=== PATIENT | male | born 1980 | race Caucasian/White ===

== ENCOUNTER 2022-01-29 21:12 | Emergency (ER) | payer MEDICAID, SELFPAY ==
[2022-01-29 21:13] VITALS: BP 109/79; PULSE 108; RESP 18; TEMP 36.9; O2SAT 96; BMI 23.8
--- NOTE | 2022-01-29 21:27 | EX.ED.GENINJ ---
HPI History of Present Illness Chief Complaint: Fall Narrative Narrative: 41-year-old male presenting with upper abdominal pain. He states he was rollerskating and felt something pull in the right upper side of his abdomen. He states this is worse when he twists and moves. He denies any nausea or vomiting. Has not had constipation or diarrhea. He does not have a cough or shortness of breath. Patient denies any direct trauma to the abdomen. He states that when he felt this pull he sat down. PFSH PFSH Home Medications cyclobenzaprine 10 mg tablet 10 mg PO TID PRN muscle spasm #20 tabs 01/29/22 [Rx Last Taken Unknown] naproxen 500 mg tablet (Naprosyn) 500 mg PO BID PRN pain #20 tabs 01/29/22 [Rx Last Taken Unknown] Allergy/AdvReac Type Severity Reaction Status Date / Time aspirin Allergy NEEDS Verified 01/29/22 21:30 FOLLOW-UP Social History Smoking Status: Current every day smoker tobacco type: cigarettes ROS ROS ED Constitutional Constitutional ED: Denies chills, fever(s) or sweats Eyes Eyes: Denies blurry vision or change in vision ENT ENT ED: Denies ear pain or sore throat Cardiovascular Cardiovascular: Denies chest pain, palpitations or racing heartbeat Respiratory/Chest Respiratory/Chest: Denies cough, dyspnea or sputum Gastrointestinal Gastrointestinal: Reports abdominal pain; Denies constipation, diarrhea, nausea or vomiting Genitourinary Genitourinary ED: Denies dysuria, hematuria or urinary frequency Musculoskeletal Musculoskeletal: Denies arthralgias, myalgias or neck pain Integumentary Denies abscess, Abrasions or rash Neurologic Neurologic: Denies headache(s), paresthesias or weakness Psychiatric Psychiatric: Denies anxiety, depression, suicidal ideation or suicidal thoughts Endocrine Endocrinology: Denies polydipsia or polyuria EXAM Physical Exam Const Vital Signs: 01/29/22 21:13 01/29/22 21:26 Temperature 98.4 F Temperature Source Temporal Pulse Rate 108 H Respiratory Rate 18 Respiratory Effort Normal Respiratory Depth Normal Respiratory Pattern Normal Blood Pressure 109/79 Blood Pressure Mean 89 Pulse Ox 96 Oxygen Delivery Method Room Air Room Air Positive well nourished General Appearance ED: NAD HEENT atraumatic Eyes Negative for PERRL or EOMs intact bilaterally Chest Wall inspection of chest normal Resp normal respiratory effort and clear to auscultation bilaterally Cardio regular rhythm GI GI Narrative: Mild tenderness to palpation on the right side of the upper abdomen. There is no Capone sign. Abdomen is otherwise soft and benign. No CVA tenderness. Extremity normal to inspection Neuro oriented x3 and CN's II-XII intact bilaterally Sensorium / Orientation: alert and oriented to person Motor Exam: strength 5/5 throughout Psych mental status grossly normal Skin no rashes or lesions noted MDM MDM MDM Narrative Medical decision making narrative: Patient was likely has an abdominal muscle strain. He is treated with Norflex and Toradol. On reevaluation patient is feeling improved. I will discharge him home with Naprosyn and Flexeril. Patient amenable to this plan. Impression: 1. Abdominal muscle strain Lab Data Attestation: I reviewed the patient's lab results. Discharge Plan Triage Chief Complaint: Fall ED Provider: Vasu Sanchez Dx/Rx/DC Orders Instructions: ED Muscle Strain, Abdomen Prescriptions: New cyclobenzaprine 10 mg tablet 10 mg PO TID PRN (Reason: muscle spasm) Qty: 20 0RF naproxen [Naprosyn] 500 mg tablet 500 mg PO BID PRN (Reason: pain) Qty: 20 0RF Primary Care Provider: NOT,DEFINED Referrals: NOT,DEFINED [Primary Care Provider] - Disposition Disposition: Home, Self Care
[2022-01-29] MEDS: Ketorolac 15 MG/ML Vial IM (21:35)
[2022-01-29] MEDS: Orphenadrine 60 MG/2 ML Ampul IM (21:35)
[2022-01-29 22:26] VITALS: PULSE 78; RESP 18; O2SAT 100
== END 2022-01-29 22:27 | disposition home or self-care (01) ==
PROVIDERS: Emergency Provider Student in an Organized Health Care Education/Training Program; Visit Provider Student in an Organized Health Care Education/Training Program
DX: S39.011A Strain of muscle, fascia and tendon of abdomen, initial encounter (principal); X50.9XXA Other and unspecified overexertion or strenuous movements or postures, initial encounter; Y93.51 Activity, roller skating (inline) and skateboarding; Y92.331 Roller skating rink as the place of occurrence of the external cause; F17.210 Nicotine dependence, cigarettes, uncomplicated
CPT/HCPCS: 96372; 99284

== ENCOUNTER 2023-04-14 21:44 | Emergency (ER) | payer MEDICAID, SELFPAY ==
[2023-04-14] VITALS (14 sets, daily range): BP systolic 105–129; BP diastolic 74–85; PULSE 85–106; RESP 8–29; TEMP 36.6; O2SAT 93–96; BMI 23.8
--- NOTE | 2023-04-14 22:10 | EKG12_ITS ---
Test Reason : DYSRHYTHMIA Blood Pressure : / mmHG Vent. Rate : 088 BPM Atrial Rate : 088 BPM P-R Int : 194 ms QRS Dur : 076 ms QT Int : 368 ms P-R-T Axes : 047 035 038 degrees QTc Int : 445 ms Sinus rhythm with frequent Premature ventricular complexes Otherwise normal ECG Confirmed by Todd Hopson ([id number]), publications editor MANUEL CASTELLANOS ([id number]) on 04/17/2023 9:57:30 AM Referred By: Confirmed By:Todd Hopson
--- NOTE | 2023-04-14 22:10 | CT_ITS ---
STUDY: CT BRAIN WITHOUT CONTRAST REASON FOR EXAM: Male, 42 years old. seizure, fall RADIATION DOSAGE (If Supplied By Facility): CTDIvol = ( 44.99 ) mGy, DLP = ( 762.36 ) mGycm TECHNIQUE: Transaxial CT imaging of the brain was performed without administration of intravenous contrast material. Individualized dose optimization techniques were used for this CT. COMPARISON: No relevant priors. FINDINGS: Normal soft tissue structures. Normal calvarium. Normal size ventricles and extra-axial spaces for the patient''s age. Normal white matter tracts of the cerebral hemispheres. Normal basal ganglia and thalami. Normal brainstem. Normal cerebellum. There is no intracranial hemorrhage. There are no findings of an acute ischemic infarction. Mucosal thickening of the visualized paranasal sinuses. CT/Brain/Head without Contrast IMPRESSION: No acute intracranial pathology of the brain. Paranasal sinus disease. Electronically Signed: Isaac Pearce DO at 23:01 EST ,
--- NOTE | 2023-04-14 22:11 | EDS_ITS ---
HPI History of Present Illness Chief Complaint: Seizure Informant: patient and family Onset/Context/Timing Onset: Today Narrative Narrative: Patient presents via EMS after a seizure while rollerskating. Patient does report a history of seizures but has not had one in years. He states he cannot afford the seizure medication has not been on medication in years either. EMS notes on arrival patient is unresponsive with blood sugar of 43. He was given D10 and blood sugar increased to 235. He was then alert and appropriate. Patient states he did not eat much today and then worsening for about 2 hours when this incident occurred. He does not know of any problems with his blood sugar. He does report some spasms in his legs which he states he will get frequently when he will roller states. [facility] Medical History Asthma Seizure Home Medications levetiracetam 500 mg tablet (Keppra) 500 mg PO BID #60 tabs 04/15/23 [Rx Last Taken Unknown] Allergy/AdvReac Type Severity Reaction Status Date / Time aspirin Allergy Rash Verified 04/14/23 21:45 Social History Smoking Status: Current every day smoker tobacco type: cigarettes ROS ROS ED Constitutional Constitutional ED: Denies chills or fever(s) Eyes Eyes: Denies change in vision or discharge from eye(s) ENT ENT ED: Denies discharge from eye(s), rhinorrhea or sore throat Cardiovascular Cardiovascular: Denies chest pain or palpitations Respiratory/Chest Respiratory/Chest: Denies cough or dyspnea Gastrointestinal Gastrointestinal: Denies abdominal pain, nausea or vomiting Genitourinary Genitourinary ED: Denies dysuria Musculoskeletal Musculoskeletal: Reports extremity pain; Denies back pain Integumentary Denies Abrasions or rash Neurologic Neurologic: Denies headache(s) or weakness Psychiatric Psychiatric: Denies anxiety or depression Allergic/Immunologic Allergic/Immunologic ED: Denies lip swelling or urticaria EXAM Physical Exam Const Vital Signs: 04/14/23 21:45 Temperature 97.9 F Temperature Source Temporal Pulse Rate 106 H Respiratory Rate 18 Blood Pressure 129/84 H Blood Pressure Mean 99 Pulse Ox 94 Positive well nourished and well developed General Appearance ED: well developed HEENT Reports moist mucous membranes HEENT Narrative: No intraoral injury. Eyes EOMs intact bilaterally Chest Wall inspection of chest normal and palpation of chest normal Resp normal respiratory effort and clear to auscultation bilaterally Cardio regular rate and regular rhythm GI non-tender Palpation: soft Extremity normal to inspection Neuro oriented x3 Neuro Narrative: No focal neurologic deficit. Sensorium / Orientation: alert Skin no rashes or lesions noted MDM MDM MDM Narrative Medical decision making narrative: Patient placed on quality assurance monitor chassis. IV line established. Repeat blood sugar ordered at this time. EKG obtained to evaluate for cardiac arrhythmia/ischemia. CT scan of the head obtained given seizure and fall. Labwork obtained to evaluate for leukocytosis, anemia, and electrolyte derangement. Patient given 1 g of IV Keppra. History & Record Review Discussion w/independent historian: Patient and Family Additional record(s) reviewed:: Prior outpatient record and Prior labs Lab Data Attestation: I reviewed the patient's lab results. Labs: Laboratory Results - last 24 hr 04/14/23 04/14/23 04/14/23 22:15 22:50 23:27 WBC 13.2 H RBC 5.03 Hgb 16.0 Hct 44.7 MCV 88.9 MCH 31.8 MCHC 35.8 RDW Std Deviation 38.5 RDW Coeff of Zehra 11.9 Plt Count 288 MPV 10.1 Immature Gran % (Auto) 0.300 Neut % (Auto) 80.7 H Lymph % (Auto) 12.3 L Prentiss % (Auto) 5.8 Eos % (Auto) 0.6 Baso % (Auto) 0.3 Absolute Neuts (auto) 10.7 H Absolute Lymphs (auto) 1.62 Nucleated RBC % 0 Sodium 141 Potassium 3.4 L Chloride 109 H Carbon Dioxide 25.0 Anion Gap 7 BUN 14 Creatinine 1.60 H Estim Creat Clear Calc 52.32 Est GFR (MDRD) Af Amer 61 Est GFR (MDRD) Non-Af 51 L BUN/Creatinine Ratio 8.8 L Glucose 109 H Calcium 9.9 POC Glucose 63 L 114 H Radiography Diagnostic Testing: Clinical Impression(s) from Imaging Studies Brain CT 04/14/23 22:10 IMPRESSION: No acute intracranial pathology of the brain. Paranasal sinus disease. Electronically Signed: Isaac Pearce DO at 23:01 EST Reading Location ID and State: [facility] / [place] Tel [phone], Service support , EKG Initial EKG: Attestation: I personally reviewed and interpreted this EKG as follows: Interpretation: Sinus Rhythm (Sinus 88 with frequent PVCs. No acute ischemia.) Treatment and Re-Evaluation :: CBC was a white count of 13.2 with a percent neutrophils. Hemoglobin normal at 16. Chemistry studies reveal slightly low potassium at 3.4. His BUN is normal at 14 but creatinine is 1.6. I reviewed records and [facility]. I do not see that he has had his renal function checked since 2016 and it was normal at that time. BGT on his blood work was 109. Patient was sent over to CT and upon return to the ER his sugar was rechecked and down to 63. He was given half amp of D50 and a sandwich with some cookies to eat. He did not eat much of it. Repeat sugar at this time is 114. Will recheck his sugar and 1/2-hour to ensure it is stable. He would prefer discharge to home if at all possible. He is not a diabetic and not on any medications that should be affecting his blood sugar. He does admit that he does not eat much. We did discuss his renal function and need to increase fluids and have this rechecked. I will write him a presc ription for Keppra and give him a good Rx card to try to help afford the medication. He will be referred to Dr. Burt locally for follow-up. Discharge Plan Triage Chief Complaint: Seizure ED Provider: Celia Buckley Dx/Rx/DC Orders Clinical Impression: Hypoglycemia, Seizure Instructions: ED Hypoglycemia, Nondiabetic, ED Seizure, Recurrent (Adult) Prescriptions: New levetiracetam [Keppra] 500 mg tablet 500 mg PO BID Qty: 60 0RF Primary Care Provider: Care Physician,No Primary Referrals: Brandan Mccrary MD [Non-Staff -Ordering Privileges] - As soon as possible NOT,DEFINED [Non-Staff] - Disposition Disposition: Home, Self Care
[2023-04-14] MEDS: 0.9% Normal Saline (500mL Bag) 500 ML 1000 ML IV (22:24)
[2023-04-14] MEDS: levETIRAcetam IV 1,000 MG/100 ML BAG 400 MG IV (22:24)
[2023-04-14 22:26] LABS: Absolute Lymphocyte Count 1.62 X10^3/uL (0.83-4.51); Absolute Neutrophil Count 10.7 X10^3/uL (2.0-7.7); Basophil# 0.04 X10^3/uL; Basophil% 0.3 % (0-1); Eosinophil# 0.08 X10^3/uL; Eosinophils% 0.6 % (0-5); Hematocrit 44.7 % (40-54); Lymphocyte # 1.62 X10^3/ul (0.83-4.51); Lymphocyte % 12.3 % (19-41); Mean Corp Hgb Conc 35.8 g/dL (32-36); Mean Corpuscular Hgb 31.8 pg (27.0-32.0); Mean Corpuscular Volume 88.9 fL (80-94); Mean Platelet Vol. 10.1 fl (6.2-12.0); Monocyte# 0.77 X10^3/uL; Monocyte% 5.8 % (0-10); NRBC Flagged by Analyzer 0 % (0-5); Neutrophil # 10.66 X10^3/uL (2.7-7.7); Neutrophil % 80.7 % (47-70); Platelet Count 288 K/mm3 (150-450); RBC Distribution Width CV 11.9 % (11.6-14.6); RBC Distribution Width SD 38.5 fl (35.1-43.9); Red Blood Count 5.03 M/mm3 (4.6-6.2); White Blood Count 13.2 K/mm3 (4.4-11.0)
--- OUTSIDE RECORDS SUMMARY | 2023-04-14 22:40 | XMS RPT_ITS | CCD ---
Author Name Unknown Address [address] [place] [address] Organization [facility] Care Team Providers Care Supervisor Tan Room Name Role Phone MICH RAMOS Unavailable Unavailab ABDULAZIZ Glover Unavailable Unavailable Unavailable Unavailable Unavailable Egal, Koko W Unavailable Unavailable Egal, Koko W Unavailable Unavailable Giorgi Villalpando Unavailable Unavailable RevillGiorgi Unavailable Unavailable Ramirez, Luis Eduardo R Unavailable Unavailable Ramirez, Luis Eduardo R Unavailable Unavailable Vandana, Zahraa S Unavailable Unavailable [place], Zahraa S Unavailable Unavailable Simon Hunter Unavailable Unavailable Simon Hunter Unavailable Unavailable [facility], Other Primary Care Provider Precious Sy Primary Care Provider Precious Sy Primary Care Provider [facility], Other Primary Care Provider YELENA BIGGS Attending Unavailable PRECIOUS SY Primary Care Unavailable PRECIOUS SY Primary Care Unavailable YELENA BIGGS Attending Unavailable PRECIOUS SY Primary Care Unavailable YELENA BIGGS Attending Unavailable Required, No Pcp Unavailable Unavailable [place], Johanny Unavailable Unavailable Peter, Myra Unavailable Unavailable [facility], Other Primary Care Provider Unavailable Primary Care Provider UnavailWADE Betancourt Attending Unavailable [facility], OTHER Primary Care Unavailable VANDANA, ZAHRAA Attending Unavailable [facility], OTHER Primary Care Unavailable RAÚL VEGA Attending Unavailable NO, PHYSICIAN Primary Care Unavailable LENKA MCMAHON Attending Unavailable NO, PHYSICIAN Primary Care Unavailable DRU PEREZ Attending Unavailable NO, PHYSICIAN Primary Care Unavailable NO, PHYSICIAN Primary Care Unavailable TERESITA PEDERSEN Attending Unavailabl e Allergies Allergy Classification Reported Allergen(s) Allergy Type Date of Onset Reaction(s) Facility Aluminum aspirin (1 source) Aluminum aspirin Drug Allergy 6 [facility] (16 sources) aspirin; Translations: [ASPIRIN] Drug Allergy 6 [facility] (1 source) Sweat Bees Rash, Swelling/Edema [facility] Medications Current Medications Medication Drug Class(es) Dates Sig (Normalized) Sig (Original) acetaminophen 325 mg / HYDROcodone bitartrate 5 mg oral tablet (3 sources) Opioid Agonist Start: 05-13-2022 End: 05-16-2022 take 1 tablet by mouth every four hours as needed hydroCODone-aceta minophen 5-325 MG tablet Indications: Kidney stone Take 1 tablet by mouth every 4 hours as needed for up to 3 days. 10 tablet 0 05/13/2022 Active Completed/Discontinued Medications Medication Drug Class(es) Dates Sig (Normalized) Sig (Original) acetaminophen 500 mg oral tablet (1 source) Start: 05-13-2022 End: 05-13-2022 acetaminophen (TYLENOL) tablet 1,000 mg 1000 ml sodium chloride 9 mg/ml injection (2 sources) Start: 07-24-2018 End: 07-25-2018 sodium chloride 0.9% (NS) Problems Active Problems Problem Classification Problem Date Documented Da te Episodic/Chronic Abdominal pain (1 source) Abdominal pain; Translations: [Abdominal pain in male] Episodic Biliary tract disease (1 source) Biliary colic; Translations: [Biliary colic] Episodic Mood disorders (5 sources) Mood disorder; Translations: [Mood disorder] Onset: 05-25-2018 05-25-2018 Chronic Open wounds of head; neck; and trunk (3 sources) Facial laceration ; Translations: [Laceration without foreign body of other part of head, initial encounter] Onset: 11-12-2022 11-12-2022 Episodic Other connective tissue disease (1 source) Pain of left hand; Translations: [Pain in left hand] Episodic Other connective tissue disease (2 sources) Enthesopathy, unspecified; Translations: [Enthesopathy, unspecified] Onset: 11-16-2022 Episodic Other connective tissue disease (2 sources) Pain in right arm; Translations: [Pain in right arm] Onset: 11-16-2022 Episodic Other connective tissue disease (1 source) Pain of left hand; Translations: [Pain of left hand] Other non-traumatic joint disorders (2 sources) Shoulder pain; Translations: [Left shoulder pain, unspecified chronicity] Episodic Other non-traumatic joint disorders (1 source) Hip pain; Translations: [Pain in unspecified hip] Episodic Residual codes; unclassified (5 sources) Restlessness and agitation; Translations: [Agitation] Onset: 06-08-2018 06-08-2018 Chronic Residual codes; unclassified (1 source) Body mass index (BMI) 22.0-22.9, adult; Translations: [BMI 22.0-22.9, adult] Onset: 05-25-2018 05-25-2018 Episodic Spondylosis; intervertebral disc disorders; other back problems (4 sources) Sacral radiculopathy; Translations: [Thoracic or lumbosacral neuritis or radiculitis, unspecified] Resolved: 08-05-2021 08-05-2021 Episodic Past or Other Problems Problem Classification Problem Date Documented Da te Episodic/Chronic Administrative/social admission (5 sources) Educational problem; Translations: [Other problems related to education and literacy] Onset: 05-25-2018 05-25-2018 Episodic Calculus of urinary tract (3 sources) Kidney stone; Translations: [Calculus of kidney] Onset: 05-13-2022 Episodic Crushing injury or internal injury (2 sources) Crushing injury of right hand, initial encounter; Translations: [Crushing injury of right hand, initial encounter] Onset: 06-14-2022 Episodic Disorders of teeth and jaw (3 sources) Toothache; Translations: [Periapical abscess without sinus] Onset: 03-14-2022 Episodic Other connective tissue disease (4 sources) Tendinitis of foot; Translations: [Tendinitis of toe] Onset: 08-28-2019 08-28-2019 Episodic Other connective tissue disease (2 sources) Pain in right hand; Translations: [Pain in right hand] Onset: 06-16-2022 Episodic Residual codes; unclassified (5 sources) FH: Diabetes mellitus; Translations: [Family history of diabetes mellitus (DM)] Onset: 06-08-2018 06-08-2018 Episodic Residual codes; unclassified (5 sources) FH: Thyroid disorder; Translations: [Family history of thyroid disorder] Onset: 06-08-2018 06-08-2018 Episodic Unclassified (1 source) Onset: 11-12-2022 11-12-2022 Results Test Name Value Interpretation Reference Range Facil ity Vital Signs Date Time Vital Sign Value Performing Clinician Facility 11-12-2022 14:52-0400 Diastolic blood pressure 86 mm[Hg] [facility] 11-12-2022 14:52-0400 Heart rate 80 /min [facility] 11-12-2022 14:52-0400 Respiratory rate 18 /min [facility] 11-12-2022 14:52-0400 SaO2% (BldA) [Mass fraction] 98 % [facility] 11-12-2022 14:52-0400 Systolic blood pressure 131 mm[Hg] [facility] 11-12-2022 13:24-0400 Body height 165.1 cm [facility] 11-12-2022 13:24-0400 Body mass index (BMI) [Ratio] 26.63 kg/m2 [facility] 11-12-2022 13:24-0400 Body weight 72.58 kg [facility] 11-12-2022 13:23-0400 Body temperature 98.1 [degF] [facility] 05-13-2022 09:29-0400 Body temperature 97.59 [degF] Wade Samuels MD Work Phone: [facility] 05-13-2022 09:29-0400 Diastolic blood pressure 64 mm[Hg] Wade Samuels MD Work Phone: [facility] 05-13-2022 09:29-0400 Heart rate 79 /min Wade Samuels MD Work Phone: [facility] 05-13-2022 09:29-0400 Respiratory rate 16 /min Wade Samuels MD Work Phone: [facility] 05-13-2022 09:29-0400 SaO2% (BldA) [Mass fraction] 97 % Wade Samuels MD Work Phone: [facility] 05-13-2022 09:29-0400 Systolic blood pressure 110 mm[Hg] Wade Samuels MD Work Phone: [facility] 05-13-2022 08:35-0400 Body height 160 cm Wade Samuels MD Work Phone: [facility] 08-27-2021 12:32-0400 Body height 160 cm No Pcp Required [facility] 08-27-2021 12:32-0400 Body temperature 96.98 [degF] No Pcp Required [facility] 08-27-2021 12:32-0400 Diastolic blood pressure 76 mm[Hg] No Pcp Required [facility] 08-27-2021 12:32-0400 Heart rate 75 /min No Pcp Required [facility] 08-27-2021 12:32-0400 SaO2% (BldA) [Mass fraction] 95 % No Pcp Required [facility] 08-27-2021 12:32-0400 Systolic blood pressure 104 mm[Hg] No Pcp Required [facility] 08-05-2021 16:47-0400 Body height 160 cm No Pcp Required [facility] 08-05-2021 16:47-0400 Body temperature 98.06 [degF] No Pcp Required [facility] 08-05-2021 16:47-0400 Diastolic blood pressure 94 mm[Hg] No Pcp Required [facility] 08-05-2021 16:47-0400 Heart rate 59 /min No Pcp Required [facility] 08-05-2021 16:47-0400 Respiratory rate 16 /min No Pcp Required [facility] 08-05-2021 16:47-0400 SaO2% (BldA) [Mass fraction] 98 % No Pcp Required [facility] 08-05-2021 16:47-0400 Systolic blood pressure 131 mm[Hg] No Pcp Required [facility] 02-23-2021 08:49-0500 Body height 160 cm Luis Eduardo Foskey DO Work Phone: [facility] 02-23-2021 08:49-0500 Body mass index (BMI) [Ratio] 28.34 kg/m2 Luis Eduardo Foskey DO Work Phone: [facility] 02-23-2021 08:49-0500 Body weight 72.58 kg Luis Eduardo Foskey DO Work Phone: [facility] 02-23-2021 08:48-0500 Body temperature 97.81 [degF] Luis Eduardo Foskey DO Work Phone: [facility] 02-23-2021 08:48-0500 Diastolic blood pressure 87 mm[Hg] Luis Eduardo Foskey DO Work Phone: [facility] 02-23-2021 08:48-0500 Heart rate 79 /min Luis Eduardo Foskey DO Work Phone: [facility] 02-23-2021 08:48-0500 Respiratory rate 16 /min Luis Eduardo Foskey DO Work Phone: [facility] 02-23-2021 08:48-0500 SaO2% (BldA) [Mass fraction] 97 % Luis Eduardo Foskey DO Work Phone: [facility] 02-23-2021 08:48-0500 Systolic blood pressure 113 mm[Hg] Luis Eduardo Foskey DO Work Phone: [facility] 07-23-2020 14:32-0400 Body temperature 97.9 [degF] Other [facility] Work Phone: [facility] 07-23-2020 14:32-0400 Diastolic blood pressure 91 mm[Hg] Other [facility] Work Phone: [facility] 07-23-2020 14:32-0400 Heart rate 64 /min Other [facility] Work Phone: [facility] 07-23-2020 14:32-0400 Respiratory rate 16 /min Other [facility] Work Phone: [facility] 07-23-2020 14:32-0400 SaO2% (BldA) [Mass fraction] 99 % Other [facility] Work Phone: [facility] 07-23-2020 14:32-0400 Systolic blood pressure 133 mm[Hg] Other [facility] Work Phone: [facility] 06-11-2020 12:41-0400 BP Diastolic 66 mm[Hg] [facility] 06-11-2020 12:41-0400 BP Systolic 135 mm[Hg] [facility] 06-11-2020 12:40-0400 BMI (Body Mass Index) 21.26 kg/m2 [facility] 06-11-2020 12:40-0400 Body Temperature 97.81 [degF] [facility] 06-11-2020 12:40-0400 Body weight 54.43 kg [facility] 06-11-2020 12:40-0400 Height 160 cm [facility] 06-11-2020 12:40-0400 Pulse (Heart Rate) 83 /min [facility] 06-11-2020 12:40-0400 Pulse Oximetry 98 % [facility] 06-11-2020 12:40-0400 Respiratory Rate 18 /min [facility] 12-03-2019 09:12-0400 BMI (Body Mass Index) 20.6 kg/m2 [facility] 12-03-2019 09:12-0400 Body Temperature 97.81 [degF] [facility] 12-03-2019 09:12-0400 Body weight 54.43 kg [facility] 12-03-2019 09:12-0400 BP Diastolic 76 mm[Hg] [facility] 12-03-2019 09:12-0400 BP Systolic 127 mm[Hg] [facility] 12-03-2019 09:12-0400 Height 162.6 cm [facility] 12-03-2019 09:12-0400 Pulse (Heart Rate) 64 /min [facility] 09:12-0400 [facility] 98 % [facility] 09:12-0400 Respiratory Rate 18 /min [facility] 08-28-2019 08:25-0400 BMI (Body Mass Index) 28.34 kg/m2 [facility] 08-28-2019 08:25-0400 Body weight 72.58 kg [facility] 08-28-2019 08:25-0400 BP Diastolic 84 mm[Hg] [facility] 08-28-2019 08:25-0400 BP Systolic 114 mm[Hg] [facility] 08-28-2019 08:25-0400 Height 160 cm [facility] 08-28-2019 08:25-0400 Pulse (Heart Rate) 76 /min [facility] 08-28-2019 08:25-0400 Respiratory Rate 18 /min [facility] 08-28-2019 08:24-0400 Body Temperature 98.1 [degF] [facility] 06-07-2019 13:08-0400 BMI (Body Mass Index) 24.96 kg/m2 [facility] 06-07-2019 13:08-0400 Body weight 68.04 kg [facility] 06-07-2019 13:08-0400 Height 165.1 cm [facility] 06-07-2019 13:06-0400 Body Temperature 99 [degF] [facility] 06-07-2019 13:06-0400 BP Diastolic 86 mm[Hg] [facility] 06-07-2019 13:06-0400 BP Systolic 136 mm[Hg] [facility] 06-07-2019 13:06-0400 Pulse (Heart Rate) 99 /min [facility] 06-07-2019 13:06-0400 Pulse Oximetry 97 % [facility] 06-07-2019 13:06-0400 Respiratory Rate 20 /min [facility] 07-25-2018 00:48-0400 BP Diastolic 79 mm[Hg] India Marker [facility] 07-25-2018 00:48-0400 BP Systolic 118 mm[Hg] India Marker [facility] 07-25-2018 00:48-0400 Pulse (Heart Rate) 64 /min India Murphy [facility] 07-25-2018 00:48-0400 Pulse Oximetry 98 % India Murphy [facility] 07-24-2018 20:31-0400 Body Temperature 98.1 [degF] India Murphy [facility] 07-24-2018 20:16-0400 BMI (Body Mass Index) 28.34 kg/m2 India Murphy [facility] 07-24-2018 20:16-0400 Height 160 cm India Murphy [facility] 07-24-2018 20:16-0400 Weight 72.58 kg India Murphy [facility] 06-15-2018 10:00-0400 BMI (Body Mass Index) 23.41 kg/m2 [facility] 06-15-2018 10:00-0400 Body Temperature 97.81 [degF] Jaiden [facility] 06-15-2018 10:00-0400 Height 162.6 cm Jaiden [facility] 06-15-2018 10:00-0400 Weight 61.87 kg [facility] 06-05-2018 11:59-0400 Body Temperature 98.71 [degF] Other [facility] 06-05-2018 11:59-0400 BP Diastolic 69 mm[Hg] [facility] 06-05-2018 11:59-0400 BP Systolic 116 mm[Hg] Other [facility] 06-05-2018 11:59-0400 Pulse (Heart Rate) 63 /min Other [facility] 06-05-2018 11:59-0400 Pulse Oximetry 97 % Other [facility] 06-05-2018 11:59-0400 Respiratory Rate 18 /min Other [facility] 02-16-2018 11:49-0500 Height 160 cm [facility] Work Phone: 02-16-2018 11:48-0500 Body Temperature 98.29 [degF] [facility] Work Phone: 02-16-2018 11:48-0500 BP Diastolic 70 mm[Hg] [facility] Work Phone: 02-16-2018 11:48-0500 BP Systolic 131 mm[Hg] [facility] Work Phone: 02-16-2018 11:48-0500 Pulse (Heart Rate) 86 /min [facility] Work Phone: 02-16-2018 11:48-0500 Pulse Oximetry 97 % [facility] Work Phone: 02-16-2018 11:48-0500 Respiratory Rate 16 /min [facility] Work Phone: Encounters Encounter Date Encounter Type Care Provider Facility Start: 01-17-2023 End: 01-17-2023 Emergency department patient visit [facility] Start: 11-16-2022 End: 11-16-2022 Emergency department patient visit [facility] Start: 11-12-2022 End: 11-12-2022 Emergency department patient visit WADE [facility] Start: 11-12-2022 End: 11-12-2022 Emergency department patient visit [facility] Start: 06-16-2022 End: 06-16-2022 Emergency department patient visit [facility] Start: 06-14-2022 End: 06-15-2022 Emergency department patient visit [facility] Start: 05-13-2022 End: 05-13-2022 Emergency department patient visit WADE [facility] Start: 05-13-2022 End: 05-13-2022 Emergency department patient visit Wade Samuels MD Work Phone: [facility] Start: 03-14-2022 End: 03-14-2022 Emergency department patient visit [facility] Start: 08-27-2021 End: 08-27-2021 Emergency department patient visit Myra Green [place] [id number] Start: 08-05-2021 End: 08-05-2021 Emergency department patient visit Johanny Early [facility] Start: 02-23-2021 End: 02-23-2021 Emergency department patient visit Luis Eduardo Dobbins Work Phone: [facility] Start: 12-28-2020 End: 12-28-2020 Emergency department patient visit ISABELLEFLAKITO LINDYEDUARDO [facility] Start: 11-30-2020 End: 11-30-2020 Emergency department patient visit [facility] Start: 2020 End: 2020 [facility] Start: 07-23-2020 End: 07-23-2020 Emergency department patient visit [facility] Work Phone: [facility] Start: 06-11-2020 End: 06-11-2020 Emergency department patient visit Giorgi Zuniga Irasema Work Phone: [facility] Emergency Department Start: 12-03-2019 End: 12-03-2019 Emergency department patient visit Annie Nair Dave Work Phone: [facility] Emergency Department Procedures Date Procedure Procedure Detail Performing Clinician Start: 11-12-2022 Ct head/brain w/o co ntrast material Precious Hi [employer] Work Phone: Start: 11-12-2022 PROCEDURE - LACERATI ON REPAIR Precious Hi [employer] Work Phone: Start: 05-13-2022 Radiologic exam abdo men 1 view Wade Samuels MD Work Phone: Start: 05-13-2022 Urinalysis, reagent strip without microscopy Wade Samuels MD Work Phone: Start: 07-23-2020 Radex hand minimum 3 views Anita Mendez [employer] Work Phone: Start: 06-11-2020 Radex hand minimum 3 views Dunia Jean Work Phone: Start: 12-03-2019 End: 12-03-2019 Glucose [Mass/volume] in Blood Vashti Gallegos Work Phone: Start: 07-25-2018 Ct abdomen & pelvis w/contrast material India Jones Marker Work Phone: Start: 07-25-2018 Basic metabolic 2000 panel - Serum or Plasma India Jones Marker Work Phone: Start: 07-25-2018 Complete blood count with white cell differential, automated India Jones Marker Work Phone: Start: 07-25-2018 Complete blood count with white cell differential, manual Indiasrini Jones Marker Work Phone: Start: 07-25-2018 Hepatic function 200 0 panel - Serum or Plasma India Jones Marker Work Phone: Start: 07-25-2018 LAVENDER TOP Indiasrini wilson Marker Work Phone: Start: 07-25-2018 LIGHT BLUE TOP Indiasrini Change Marker Work Phone: Start: 07-25-2018 LIGHT GREEN TOP Indiasrini Jones Marker Work Phone: Start: 07-25-2018 Lipase [Enzymatic activity/volume] in Serum or Plasma India Jones Marker Work Phone: Start: 06-05-2018 Radiography of shoulder Alex Odom Work Phone: Plan of Treatment Date Care Activity Detail Author Start: 11-12-2032 Tetanus vaccination TETANUS [facility] Start: 2030 Tetanus vaccination TETANUS [facility] Start: 10-28-2022 Influenza vaccination INFLUENZA VACCINE (#1) [facility] Start: 10-28-2021 Influenza vaccination INFLUENZA VACCINE (#1) [facility] Start: 10-28-2020 Influenza vaccination [facility] [employer] Start: 2020 Fasting lipid profile LIPID SCREENING [facility] [employer] Start: 2020 Lipid panel LIPID SCREENING [facility] [employer] [facility] Start: 08-11-2020 End: 08-11-2020 Patient encounter procedure 08/11/2020 Office Visit Orthopaedics Jaiden Cummins DO [address] [place] [address] [phone] [facility] Start: 10-29-2019 Influenza vaccination given [facility] Start: 05-26-2019 History and physical examination, annual for health maintenance Wellness Visit [facility] Start: 10-28-2018 Influenza vaccination INFLUENZA VACCINE (Season Ended) [facility] Start: 10-28-2018 Influenza vaccination given [facility] Start: 08-08-2018 End: 08-08-2018 Office Visit 08/08/2018 Office Visit Primary Care Precious Sy, [employer] [address] [place] [address] [phone] [place] [id number] Start: 06-15-2018 End: 06-15-2018 Office Visit 06/15/2018 Office Visit Orthopaedics Jaiden Cummins, DO [address] [place] [address] [phone] [facility] Start: 10-28-2017 Influenza vaccination INFLUENZA VACCINE (#1) [facility] Work Phone: Start: 10-03-1999 Third diphtheria, tetanus and acellular pertussis (DTaP) vaccination TDAP (ADULT) [facility] Start: 1998 Tetanus vaccination TETANUS [facility] Start: 1996 COVID-19 Vaccine (1) COVID-19 Vaccine (1) [facility] Start: 10-03-1995 HIV screening HIV SCREENING DISCUSSION [facility] Start: 1993 HIV screening HIV SCREENING DISCUSSION [facility] Work Phone: Start: 1992 Adolescent depression screening assessment Depression Screening (PHQ9) [facility] Start: 1992 COVID-19 VACCINE (1) COVID-19 VACCINE (1) [facility] Start: 1986 PNEUMOCOCCAL VACCINE SERIES (1 - PCV) PNEUMOCOCCAL VACCINE SERIES (1 - PCV) [facility] Start: 1986 PNEUMOCOCCAL VACCINE SERIES (1 of 2 - PPSV23) PNEUMOCOCCAL VACCINE SERIES (1 of 2 - PPSV23) [facility] Start: 1985 COVID-19 VACCINE (1) COVID-19 VACCINE (1) [facility] Start: 04-04-1981 COVID-19 VACCINE (#1) COVID-19 VACCINE (#1) [facility] Start: 1980 Depression screening using PHQ-9 (Patient Health Questionnaire 9) score Depression Screening (PHQ9) [facility] Start: 1980 Hepatitis C antibody, confirmatory test HEPATITIS C VIRUS SCREENING [facility] Start: 1980 Hepatitis C screening HEPATITIS C VIRUS SCREENING [facility] Start: 1980 Tetanus vaccination [facility] CT Abdomen Pelvis Wi IV Contrast Only CT Abdomen Pelvis With IV Contrast Only Imaging STAT 07/24/2018 11:37 PM EDT [facility] [place] [employer] [place] Top L ab STAT 07/24/2018 9:44 PM EDT [facility] PROCEDURE - LACERATI ON REPAIR Laceration Repair at the Bedside Procedures Routine Facial laceration, initial encounter 11/12/2022 1:55 PM EDT [facility] End: 02-16-2018 Radiography of shoulder XR SHOULDER RIGHT MIN 2 VIEWS STAT One Time for 1 Occurrences starting 02/16/2018 until 02/16/2018 [facility] Work Phone: Immunizations Immunization Date Immunization Notes Care Provider Luis Alfredo landaverde 11-12-2022 tetanus toxoid, redu gerri diphtheria toxoid, and acellular pertussis vaccine, adsorbed [facility] Payers Date Payer Category Payer Medicaid [place] MEDICA[place] [id number] 2022-Present [address] [place] [address] [id number] 2020 Unknown [employer]OUNT [employer]GE [employer] [id number] 2020-Present [address] [place] [address] [id number] 2018 Medicaid MEDICAID MEDICAI D xxxxxxxxxxxx 2018-Present [id number] 2018 Medicaid MEDICAID MEDICAI D [id number] 2018-Present [id number] 2018 Medicaid [employer]OUNT [employer]NA[employer] D MEDICAID [place] [employer] MEDICAID [id number] 2018-Present [id number] 2018 Medicaid [id number] 2018 Unknown [id number] 2018 Medicaid [id number] 2016 Medicaid [id number] 1980 Unknown [id number] 1980 Unknown [id number] 1980 Unknown [id number] 1980 Unknown [id number] 1980 Unknown [id number] 1980 Unknown [id number] 1980 Unknown [id number] 1980 Unknown [id number] 1980 Unknown [id number] 1980 Unknown [id number] Unknown [employer] MEDICAID Social History Date Type Detail Facility Start: 02-16-2018 End: 05-13-2022 Tobacco smoking status NHIS Current some day smoker [facility] History of tobacco use Cigarette Smoker [facility] Work Phone: Start: 02-16-2018 End: 11-12-2022 Cigarettes smoked current (pack per day) - Reported [facility] Work Phone: Start: 1980 Sex Assigned At Not on file [facility] Work Phone: Start: 09-16-2015 Alcohol Comment rarely [facility] Start: 06-07-2019 End: 06-11-2020 Alcohol intake Ex-drinker (finding) [facility] Exposure to SARS-CoV -2 (event) Unable to assess [facility] Start: 05-03-2022 End: 05-13-2022 Exposure to SARS-CoV-2 (event) Not sure [facility] Start: 12-03-2019 End: 06-11-2020 Tobacco use and exposure Former user [facility] End: 02-27-2017 History of tobacco use User of smokeless tobacco [facility] Start: 07-23-2020 End: 05-13-2022 Tobacco use and exposure Never used [facility] Start: 07-23-2020 End: 11-12-2022 Alcohol intake Current non-drinker of alcohol (finding) [facility] Tobacco smoking consumption unknown [facility] Start: 11-12-2022 Tobacco use panel [facility] Start: 02-16-2018 Gender identity Identifies as male gender (finding) [facility] Goals Date Patient Goal Desired Activity /State Clinical Notes 07-23-2020 to 11-12-2022 Kavita Beaulieu RN - 11/12/2022 2:52 PM Lissette Beaulieu RN - 11/12/2022 2:52 PM Lissette Beaulieu RN - 11/12/2022 2:43 PM EDTTisaac Beaulieu RN - 11/12/2022 2:43 PM EDTInstructionsAttachments Note Date & Type Note Facility 11-12-2022 Emergency departm ent Note Discharge instructions given to patient. Patient verbalized understanding. All personal belongings given to patient. Denied any further needs. Ambulated with steady gait out of Emergency Department. [facility] 11-12-2022 Emergency departm ent Note Discharge instructions given to patient. Patient verbalized understanding. All personal belongings given to patient. Denied any further needs. Ambulated with steady gait out of Emergency Department. Mid-level provider at bedside. Plan of care reviewed per provider. documented in this encounter [facility] 11-12-2022 Emergency depart ent Note Mid-level provider at bedside. Plan of care reviewed per provider. [facility] 05-13-2022 Physician Emergen cy department Note Emergency Department Report [facility] Service Date:.05/13/22 PCP: [facility] Chief Complaint: Chief Complaint Patient presents with Flank Pain Pt c/o right flank pain for a long time . Pt reports history of multiple kidney stones. Reports he did have burning with urination, but has been drinking a lot of cranberry juice and Gatorade and that improved his urinary symptoms. HPI Constantino Pineda is a 41 y.o. male presents to the ED today due to right flank pain is been going on for a long time. Patient states he has a history of recurrent kidney stones. Patient some burning urination. But he has been drinking fluids which is symptoms. No report of fever or chills no report of bowel bladder dysfunction no report numbness tingling or weakness. Review of Systems: Review of Systems All other systems reviewed and are negative. Past Medical History: Past Medical History: Diagnosis Date Asthma Bipolar affect, depressed Seizure Past Surgical History: No past surgical history on file. Allergies: Allergies Allergen Reactions Aspirin Hives Medications: Discharge Medication List as of 05/13/2022 9:54 AM START taking these medications Details hydroCODone-acetaminophen 5-325 MG tablet Take 1 tablet by mouth every 4 hours as needed for up to 3 days. Normal Disp-10 tablet, R-0Prescribe no greater than 7 days (adult) or 5 days (minor) for acute pain unless justification documented in chart Ondansetron 4 MG Tab Dispersible tablet Take 1 tablet by mouth every [address] on tongue Normal Disp-15 tablet, R-0 Tamsulosin HCl 0.4 MG capsule Take 1 capsule by mouth daily. Until stone passed Normal Disp-10 capsule, R-0 CONTINUE these medications which have NOT CHANGED Details Albuterol 108 (90 Base) MCG/ACT Aero Soln inhaler Inhale 2 puffs. Historical Med busPIRone 5 MG Tab Take 1 tablet by mouth 3 times daily as needed. Historical Med cyclobenzaprine 10 MG Tab tablet Take 1 tablet by mouth 3 times daily as needed for Muscle spasms. Print Disp-12 tablet, R-0 ibuprofen 600 MG tablet Take 1 tablet by mouth every 6 hours as needed. Normal Disp-30 tablet, R-0 predniSONE 20 MG Tab tablet Take 1 tablet by mouth 2 times daily. Print Disp-10 tablet, R-0 QUEtiapine 50 MG Tab tablet Take 1 tablet by mouth Daily (with dinner). Historical Med Family History: No family history on file. Social History: Social History Socioeconomic History Marital status: Spouse name: Not on file Number of children: Not on file Years of education: Not on file Highest education level: Not on file Occupational History Not on file Tobacco Use Smoking status: Some Days Packs/day: 0.50 Types: Cigarettes Smokeless tobacco: Never Substance and Sexual Activity Alcohol use: No Drug use: Yes Types: Marijuana Sexual activity: Not on file Other Topics Concern Not on file Social History Narrative Not on file Social Determinants of Health Financial Resource Strain: Not on file Food Insecurity: Not on file Transportation Needs: Not on file Physical Activity: Not on file Stress: Not on file Social Connections: Not on file Intimate Partner Violence: Not on file Housing Stability: Not on file Physical Exam: Physical Exam Constitutional: Appearance: Normal appearance. HENT: Head: Normocephalic and atraumatic. Right Ear: External ear normal. Left Ear: External ear normal. Nose: Nose normal. Mouth/Throat: Mouth: Mucous membranes are moist. Pharynx: Oropharynx is clear. Eyes: Pupils: Pupils are equal, round, and reactive to light. Cardiovascular: Rate and Rhythm: Normal rate and regular rhythm. Heart sounds: Normal heart sounds. Pulmonary: Effort: Pulmonary effort is normal. Breath sounds: Normal breath sounds. Abdominal: General: Bowel sounds are normal. There is no distension. Palpations: Abdomen is soft. Tenderness: There is no abdominal tenderness. Musculoskeletal: General: Normal range of motion. Cervical back: Normal range of motion and neck supple. Comments: Right flank tenderness to palpation Skin: General: Skin is warm and dry. Capillary Refill: Capillary refill takes less than 2 seconds. Findings: No erythema. Neurological: General: No focal deficit present. Mental Status: He is alert and oriented to person, place, and time. Mental status is at baseline. Psychiatric: Mood and Affect: Mood normal. Behavior: Behavior normal. Vital Signs During ED Visit Patient Vitals for the past 24 hrs: BP Temp Temp src Pulse Resp SpO2 Height 05/13/22 0929 110/64 97.6 F (36.4 C) Oral 79 16 97 % -- 05/13/22 0835 -- -- -- -- -- -- 1.6 m (5' 3 ) 05/13/22 0834 114/79 97.5 F (36.4 C) Oral 75 18 97 % -- Differential Diagnosis: kidney stone, urinary tract infection Orders/Results: Orders Placed This Encounter XR ABDOMEN 1 VIEW acetaminophen (TYLENOL) tablet 1,000 mg Ondansetron (ZOFRAN) tablet 4 mg hydroCODone-acetaminophen 5-325 MG tablet Tamsulosin HCl 0.4 MG capsule Ondansetron 4 MG Tab Dispersible tablet URINALYSIS, MACRO Results for orders placed or performed during the hospital encounter of 05/13/22 URINALYSIS, MACRO Result Value Ref Range COLOR, URINE YELLOW YELLOW APPEARANCE, URINE CLEAR CLEAR Specific [place], Urine 1.020 1.010 - 1.025 PH URINE 5.5 5.0 - 7.0 PROTEIN, URINE NEGATIVE NEGATIVE mg/dl GLUCOSE, URINE NEGATIVE NEGATIVE mg/dl KETONES, URINE NEGATIVE NEGATIVE mg/dl BILIRUBIN, URINE NEGATIVE NEGATIVE BLOOD, URINE DIPSTICK NEGATIVE NEGATIVE NITRITES, URINE NEGATIVE NEGATIVE UROBILINOGEN, URINE 0.2 0.2 - 1.0 E.U./dL LEUKOCYTE ESTERASE, URINE NEGATIVE NEGATIVE Radiographic Imaging XR ABDOMEN 1 VIEW Final Result IMPRESSION: There is a 4 x 3 mm calcific density overlying the right lower pelvis which could represent distal right ureteral or ureterovesicular junction calculus. Moderate Sedation Procedure: No Procedures: Procedures ED Summary: Appears to represent a right sided kidney stone. Patient be discharged home in stable condition with follow-up on outpatient basis. I do not feel that any further workup is needed at this time is patient is comfortable in this recurrence sequelae. In addition he is had normal vital signs. Patient can return for uncontrolled pain nausea him if any other issues. Clinical Impression: 1. Kidney stone No follow-ups on file. Discharge Medication List as of 05/13/2022 9:54 AM START taking these medications Details hydroCODone-acetaminophen 5-325 MG tablet Take 1 tablet by mouth every 4 hours as needed for up to 3 days. Normal Disp-10 tablet, R-0Prescribe no greater than 7 days (adult) or 5 days (minor) for acute pain unless justification documented in chart Ondansetron 4 MG Tab Dispersible tablet Take 1 tablet by mouth every [address] on tongue Normal Disp-15 tablet, R-0 Tamsulosin HCl 0.4 MG capsule Take 1 capsule by mouth daily. Until stone passed Normal Disp-10 capsule, R-0 Discharge Medication List as of 05/13/2022 9:54 AM An After Visit Summary was printed and given to the patient with above information. . . Wade Sameuls MD 05/13/22 1015 [facility] 05-13-2022 Emergency departm ent Note Emergency Department Report [facility] Service Date:.05/13/22 PCP: [facility] Chief Complaint: Chief Complaint Patient presents with Flank Pain Pt c/o right flank pain for a long time . Pt reports history of multiple kidney stones. Reports he did have burning with urination, but has been drinking a lot of cranberry juice and Gatorade and that improved his urinary symptoms. HPI Constantino Pineda is a 41 y.o. male presents to the ED today due to right flank pain is been going on for a long time. Patient states he has a history of recurrent kidney stones. Patient some burning urination. But he has been drinking fluids which is symptoms. No report of fever or chills no report of bowel bladder dysfunction no report numbness tingling or weakness. Review of Systems: Review of Systems All other systems reviewed and are negative. Past Medical History: Past Medical History: Diagnosis Date Asthma Bipolar affect, depressed Seizure Past Surgical History: No past surgical history on file. Allergies: Allergies Allergen Reactions Aspirin Hives Medications: Discharge Medication List as of 05/13/2022 9:54 AM START taking these medications Details hydroCODone-acetaminophen 5-325 MG tablet Take 1 tablet by mouth every 4 hours as needed for up to 3 days. Normal Disp-10 tablet, R-0Prescribe no greater than 7 days (adult) or 5 days (minor) for acute pain unless justification documented in chart Ondansetron 4 MG Tab Dispersible tablet Take 1 tablet by mouth every [address] on tongue Normal Disp-15 tablet, R-0 Tamsulosin HCl 0.4 MG capsule Take 1 capsule by mouth daily. Until stone passed Normal Disp-10 capsule, R-0 CONTINUE these medications which have NOT CHANGED Details Albuterol 108 (90 Base) MCG/ACT Aero Soln inhaler Inhale 2 puffs. Historical Med busPIRone 5 MG Tab Take 1 tablet by mouth 3 times daily as needed. Historical Med cyclobenzaprine 10 MG Tab tablet Take 1 tablet by mouth 3 times daily as needed for Muscle spasms. Print Disp-12 tablet, R-0 ibuprofen 600 MG tablet Take 1 tablet by mouth every 6 hours as needed. Normal Disp-30 tablet, R-0 predniSONE 20 MG Tab tablet Take 1 tablet by mouth 2 times daily. Print Disp-10 tablet, R-0 QUEtiapine 50 MG Tab tablet Take 1 tablet by mouth Daily (with dinner). Historical Med Family History: No family history on file. Social History: Social History Socioeconomic History Marital status: Spouse name: Not on file Number of children: Not on file Years of education: Not on file Highest education level: Not on file Occupational History Not on file Tobacco Use Smoking status: Some Days Packs/day: 0.50 Types: Cigarettes Smokeless tobacco: Never Substance and Sexual Activity Alcohol use: No Drug use: Yes Types: Marijuana Sexual activity: Not on file Other Topics Concern Not on file Social History Narrative Not on file Social Determinants of Health Financial Resource Strain: Not on file Food Insecurity: Not on file Transportation Needs: Not on file Physical Activity: Not on file Stress: Not on file Social Connections: Not on file Intimate Partner Violence: Not on file Housing Stability: Not on file Physical Exam: Physical Exam Constitutional: Appearance: Normal appearance. HENT: Head: Normocephalic and atraumatic. Right Ear: External ear normal. Left Ear: External ear normal. Nose: Nose normal. Mouth/Throat: Mouth: Mucous membranes are moist. Pharynx: Oropharynx is clear. Eyes: Pupils: Pupils are equal, round, and reactive to light. Cardiovascular: Rate and Rhythm: Normal rate and regular rhythm. Heart sounds: Normal heart sounds. Pulmonary: Effort: Pulmonary effort is normal. Breath sounds: Normal breath sounds. Abdominal: General: Bowel sounds are normal. There is no distension. Palpations: Abdomen is soft. Tenderness: There is no abdominal tenderness. Musculoskeletal: General: Normal range of motion. Cervical back: Normal range of motion and neck supple. Comments: Right flank tenderness to palpation Skin: General: Skin is warm and dry. Capillary Refill: Capillary refill takes less than 2 seconds. Findings: No erythema. Neurological: General: No focal deficit present. Mental Status: He is alert and oriented to person, place, and time. Mental status is at baseline. Psychiatric: Mood and Affect: Mood normal. Behavior: Behavior normal. Vital Signs During ED Visit Patient Vitals for the past 24 hrs: BP Temp Temp src Pulse Resp SpO2 Height 05/13/22 0929 110/64 97.6 F (36.4 C) Oral 79 16 97 % -- 05/13/22 0835 -- -- -- -- -- -- 1.6 m (5' 3 ) 05/13/22 0834 114/79 97.5 F (36.4 C) Oral 75 18 97 % -- Differential Diagnosis: kidney stone, urinary tract infection Orders/Results: Orders Placed This Encounter XR ABDOMEN 1 VIEW acetaminophen (TYLENOL) tablet 1,000 mg Ondansetron (ZOFRAN) tablet 4 mg hydroCODone-acetaminophen 5-325 MG tablet Tamsulosin HCl 0.4 MG capsule Ondansetron 4 MG Tab Dispersible tablet URINALYSIS, MACRO Results for orders placed or performed during the hospital encounter of 05/13/22 URINALYSIS, MACRO Result Value Ref Range COLOR, URINE YELLOW YELLOW APPEARANCE, URINE CLEAR CLEAR Specific [place], Urine 1.020 1.010 - 1.025 PH URINE 5.5 5.0 - 7.0 PROTEIN, URINE NEGATIVE NEGATIVE mg/dl GLUCOSE, URINE NEGATIVE NEGATIVE mg/dl KETONES, URINE NEGATIVE NEGATIVE mg/dl BILIRUBIN, URINE NEGATIVE NEGATIVE BLOOD, URINE DIPSTICK NEGATIVE NEGATIVE NITRITES, URINE NEGATIVE NEGATIVE UROBILINOGEN, URINE 0.2 0.2 - 1.0 E.U./dL LEUKOCYTE ESTERASE, URINE NEGATIVE NEGATIVE Radiographic Imaging XR ABDOMEN 1 VIEW Final Result IMPRESSION: There is a 4 x 3 mm calcific density overlying the right lower pelvis which could represent distal right ureteral or ureterovesicular junction calculus. Moderate Sedation Procedure: No Procedures: Procedures ED Summary: Appears to represent a right sided kidney stone. Patient be discharged home in stable condition with follow-up on outpatient basis. I do not feel that any further workup is needed at this time is patient is comfortable in this recurrence sequelae. In addition he is had normal vital signs. Patient can return for uncontrolled pain nausea him if any other issues. Clinical Impression: 1. Kidney stone No follow-ups on file. Discharge Medication List as of 05/13/2022 9:54 AM START taking these medications Details hydroCODone-acetaminophen 5-325 MG tablet Take 1 tablet by mouth every 4 hours as needed for up to 3 days. Normal Disp-10 tablet, R-0Prescribe no greater than 7 days (adult) or 5 days (minor) for acute pain unless justification documented in chart Ondansetron 4 MG Tab Dispersible tablet Take 1 tablet by mouth every [address] on tongue Normal Disp-15 tablet, R-0 Tamsulosin HCl 0.4 MG capsule Take 1 capsule by mouth daily. Until stone passed Normal Disp-10 capsule, R-0 Discharge Medication List as of 05/13/2022 9:54 AM An After Visit Summary was printed and given to the patient with above information. . . Wade Samuels MD 05/13/22 1015 documented in this encounter [facility] 02-23-2021 Hospital Discharg Luis Eduardo Barcenas, - 02/23/2021 Thank you for allowing us to be involved in your care today. Please follow up as discussed during your stay. This information is included in your discharge paperwork. Appropriate follow up is essential in your continued care after today's visit. If you had any diagnostic studies (Labs, X-rays, CT-scan , Ultrasound or Cultures) have your Primary Care Physician (PCP) review them with you since there may be results that require further follow up or investigation. Return to the Emergency Department at any point with worsening conditions or concerns. The physician and staff of the Emergency Department would like to thank you for choosing our facility for your health care needs. Our goal is to provide exceptional service. You may be receiving a survey in the mail following your visit. Because your feedback is very important to us, we hope you will take the time to complete and return the survey. If for any reason, you feel that you cannot rate us Very Good or 5 for the service you received today, please let us know prior to your discharge. Please follow up with your family doctor or one of your choosing. You may find a provider through [facility] by calling [phone] or by visiting [email or web address]..[employer] Thank You for choosing the [facility] Emergency Department! The following attachments cannot be sent through Care Everywhere.Hip Pain (British)documented in this encounter [facility] 02-23-2021 Emergency departm ent Note Images from the original note were not included. Emergency Department Report [facility] Service Date:.02/23/21 PCP: [facility] Chief Complaint: Chief Complaint Patient presents with Hip Pain right hip pain after picking up a turkey HPI Constantino Pineda is a 40 y.o. male presents to the ED today due to right hip pain for 4 days. [place] that was 20 or 30 pounds and his hip hurt about 4 days ago. He's not been taking medications. He was seen yesterday at [facility] had a CT of his hip and pelvis which was normal. He was prescribed Robaxin and prednisone although he didn't pick that up and states he didn't know he was supposed to pick that up so he presents today because he continues to have pain. He can walk but complains of discomfort. No skin redness. No numbness. Review of Systems: Review of Systems Constitutional: Negative for chills and fever. HENT: Negative for congestion, sore throat, trouble swallowing and voice change. Eyes: Negative for discharge and visual disturbance. Respiratory: Negative for cough and shortness of breath. Cardiovascular: Negative for chest pain and leg swelling. Gastrointestinal: Negative for abdominal pain, nausea and vomiting. Genitourinary: Negative for dysuria. Musculoskeletal: Positive for gait problem. Negative for back pain. Right hip pain x 4 days Skin: Negative for rash. Neurological: Negative for weakness. Psychiatric/Behavioral: Negative for confusion. All other systems reviewed and are negative. Past Medical History: Past Medical History: Diagnosis Date Asthma Bipolar affect, depressed Seizure Past Surgical History: No past surgical history on file. Allergies: Allergies Allergen Reactions Aspirin Hives Medications: Patient's Medications New Prescriptions No medications on file Previous Medications ALBUTEROL (PROAIR HFA) 108 (90 BASE) MCG/ACT AERO SOLN INHALER Inhale 2 puffs. BUSPIRONE 5 MG TAB Take 5 mg by mouth 3 times daily as needed. CYCLOBENZAPRINE 10 MG TAB TABLET Take 1 tablet by mouth 3 times daily as needed for Muscle spasms. IBUPROFEN 600 MG TAB TABLET Take 1 tablet by mouth every 6 hours as needed. PREDNISONE 20 MG TAB TABLET Take 1 tablet by mouth 2 times daily. QUETIAPINE 50 MG TAB TABLET Take 50 mg by mouth Daily (with dinner). Modified Medications No medications on file Discontinued Medications No medications on file Family History: History reviewed. No pertinent family history. Social History: Social History Socioeconomic History Marital status: Spouse name: Not on file Number of children: Not on file Years of education: Not on file Highest education level: Not on file Occupational History Not on file Tobacco Use Smoking status: Current Some Day Smoker Packs/day: 0.20 Types: Cigarettes Smokeless tobacco: Never Used Substance and Sexual Activity Alcohol use: No Drug use: Yes Types: Marijuana Sexual activity: Not on file Other Topics Concern Not on file Social History Narrative Not on file Social Determinants of Health Financial Resource Strain: Not on file Food Insecurity: Not on file Transportation Needs: Not on file Physical Activity: Not on file Stress: Not on file Social Connections: Not on file Intimate Partner Violence: Not on file Housing Stability: Not on file Physical Exam: Physical Exam Constitutional: General: He is not in acute distress. Musculoskeletal: General: Normal range of motion. Right upper leg: Normal. Right knee: Normal. Right lower leg: Normal. Right ankle: Normal. Right foot: Normal. Legs: Comments: Complains of pain lateral hip with movement but he had full range of motion. No swelling or redness. Skin: General: Skin is warm and dry. Capillary Refill: Capillary refill takes less than 2 seconds. Findings: No rash. Neurological: Mental Status: He is alert and oriented to person, place, and time. GCS: GCS eye subscore is 4. GCS verbal subscore is 5. GCS motor subscore is 6. Cranial Nerves: Cranial nerves are intact. Sensory: Sensation is intact. Motor: Motor function is intact. Deep Tendon Reflexes: Reflex Scores: Patellar reflexes are 2+ on the right side and 2+ on the left side. Vital Signs During ED Visit Patient Vitals for the past 24 hrs: BP Temp Temp src Pulse Resp SpO2 Height Weight 02/23/21 0849 1.6 m (5' 3 ) 72.6 kg (160 lb) 02/23/21 0848 113/87 97.8 F (36.6 C) Oral 79 16 97 % Orders/Results: No orders of the defined types were placed in this encounter. No results found for this or any previous visit. Radiographic Imaging No orders to display Constantino Menezes MD - 02/22/2021 EXAMINATION: CT LUMBAR SPINE WITHOUT CONTRAST HISTORY: ORDERING SYSTEM PROVIDED HISTORY: Low back pain, increased fracture risk, TECHNOLOGIST PROVIDED HISTORY: Illness/Other Reason for exam: chronic low back pain, increased last couple days Encounter Type: Ongoing Additional signs and symptoms: ORDERING SYSTEM PROVIDED DIAGNOSIS CODES: COMPARISON: None. TECHNIQUE: Multiple contiguous axial CT images were obtained through the lumbar spine without intravenous contrast. Coronal and sagittal reformatted images were also obtained. Dose reduction techniques were achieved by using automated exposure control and/or adjustment of mA and/or kV according to patient size and/or use of iterative reconstruction technique. FINDINGS: Straightening of the lumbar spine. Vertebral bodies are anatomically aligned. Vertebral body heights are preserved. There is no evidence for acute fracture . There is no evidence for acute subluxation. Disc space heights are preserved. No appreciable focal disc herniations. No levels of spinal canal stenosis. No levels of high-grade foraminal encroachment. IMPRESSION: 1. Negative for acute compression fracture or traumatic subluxation. 2. No levels of spinal canal or high-grade foraminal encroachment based on CT imaging. EYY/pji Procedures: Procedures Moderate Sedation Procedure: No Medications Ordered/Given During ED Visit Medications - No data to display Medical Decision Making Right hip pain. CT reviewed and normal as above. I would recommend he picks up his Robaxin and prednisone which he did not picker and sorter load and unload. I reprinted his discharge summary from [facility] and he will picker and sorter load and unload the meds and follow-up with primary care. He stable. Clinical Impression: 1. Hip pain Acute No follow-ups on file. New Prescriptions No medications on file Discontinued Medications No medications on file An After Visit Summary was printed and given to the patient with above information. Luis Eduardo Dobbins DO 02/23/21 0904 documented in this encounter [facility] [place] 07-23-2020 Hospital Discharg e instructions Anita Mendez, PRODUCT DEVELOPMENT CARPENTER-LIME BURNER - 07/23/2020 May continue ibuprofen as needed for pain. Please follow-up with orthopedics, call for appointment. Return for worsening or worrisome symptoms. documented in this encounter [facility] [place] [facility] [place] Diagnosis Hip pain- Primary Pain in joint, pelvic region and thigh [facility] [place] Diagnosis Kidney stone- Primary Calculus of kidney [facility] [place] Diagnosis Facial laceration, initial encounter- Primary [facility]* Attachments The following attachments cannot be sent through Care Everywhere. * Kidney Stone (British) [facility] [place]* Attachments The following attachments cannot be sent through Care Everywhere. * Lacerations: Stitches (British) * Wound Check (British) [facility] [place] [place] [facility]ative)* Consultation (Urgent) Status Reason Specialty Diagnoses / Procedures Referred By Contact Referred To Contact New Request Orthopaedics Diagnoses Pain of left hand Anita Mendez APRN-CNP [address] [address] Jaiden Cummins DO [address] [place] [address] Electronically signed by Anita THOMAS at [facility] [place] Summary Purpose Family History No Family History Records FoundNo Family History Records FoundNo Family History Records FoundNo Family History Records FoundNo Family History Records FoundNo Family History Records FoundNo Family History Records Found Advance Directives No Advanced Directives Records FoundDocuments on File Type Date Recorded Patient Production Analyst Expl anation Advance Directives and Livin g Will 07/24/2018 10:04 PM Documents on File Type Date Recorded Patient Production Analyst Expl anation Advance Directives and Livin g Will 06/07/2019 1:18 PM Documents on File Type Date Recorded Patient Production Analyst Expl anation Advance Directives and Livin g Will 08/28/2019 8:46 AM Documents on File Type Date Recorded Patient Production Analyst Expl anation Advance Directives and Livin g Will 12/03/2019 9:21 AM Documents on File Type Date Recorded Patient Production Analyst Expl anation Advance Directives and Livin g Will 06/11/2020 12:58 PM Discharge Instructions The following attachments cannot be sent through Care Everywhere. * Shoulder Pain, Uncertain Cause (British) * R.I.C.E. (British) in this encounter* Instructions* India Murphy, - 07/25/2018 Your symptoms are concerning for biliary colic which is pain after eating from your gallbladder. Recommendation is to eat low-fat, low spice diet. Drink plenty of fluids. Avoid alcohol. Return to theemergency department for increasing pain or difficulty eating. Call tomorrow to schedule an outpatient ultrasound of your gallbladder. You should schedule this at a time when you have had nothing to eat or drink for at least 6 to 8 hours, likely in the morning hours. * Attachments The following attachments cannot be sent through Care Everywhere. * Abdominal Pain (British) * Gallstones: General Info (British) documented in this encounter* Instructions* Dunia Jean CNP - 06/07/2019 Take the antibiotic as prescribed until gone. Read and follow pharmacy instructions with this medication. If you have any questions, ask the pharmacist, your primary care provider or return here. Follow-up with your dentist as we discussed. Use Tylenol and ibuprofen as needed for pain or fever. * Attachments The following attachments cannot be sent through Care Everywhere. * Tooth and Gum Pain (British) documented in this encounter* Instructions* Navneet Sofia MD - 08/28/2019 advised OTC ibuprofen 600 mg 3 times a day after food; use Ky wrap during the day time; continue using wide box shoes; follow-up with the PCP PRN; return to ER if gets worse like redness or fever; * Attachments The following attachments cannot be sent through Care Everywhere. * De Quervain's: Tenosynovitis (British) documented in this encounter* Attachments The following attachments cannot be sent through Care Everywhere. * Shoulder Flexibility, Exercises For: Pendulum Exercise (British) * Strains and Sprains, Treating (British) documented in this encounter* Discharge Instr - Care Coordination* Vashti Pike RN - 06/11/2020 1:57 PM EDT Where do I go for Care? When you need medical attention, knowing where to go can be confusing. Follow these tips to help you understand the differences between these three care options. When do I go to primary care? Preventive, wellness and illness care Management of chronic diseases and conditions Annual health screening examinations Care for newborns, infants and adolescents Male and Female exams Anxiety, depression and mood disorders Sick visits and immunizations When do I go to urgent care? Urgent care focuses on diagnosing and treating conditions that are not life-threatening, Yet need to be addressed promptly. These can include: Cold or Flu-like symptoms Rash Minor Breaks, Sprains and Strains Animal or Insect Bites Minor Cesar Allergic Reactions [facility] 7 days a week 9a.m.-7p.m. [address] [place], [place] [address] When do I go to the Emergency Department? The emergency department treats severe and life-threatening conditions. These can include: Severe Head Injury Stroke Shortness of Breath or Wheezing Chest Pain Severe Bleeding Major Cesar Major Breaks, Sprains and Strains Emergency Care offered in three locations: [place]: [address] [facility]: 199 [facility]: [address] [facility] * Attachments The following attachments cannot be sent through Care Everywhere. * Hand Pain (British) documented in this encounter Assessments Diagnosis Acute pain of right shoulder - Primary Diagnosis Left shoulder pain, unspecified chronicity- Primary Diagnosis Abdominal pain in male- Primary Biliary colic Calculus of gallbladder without mention of cholecystitis or obstruction Diagnosis Pain, dental Diagnosis Tendinitis of toe Diagnosis Encounter for medical screening examination- Primary Diagnosis Strain of left shoulder, initial encounter- Primary Diagnosis Pain of left hand- Primary History of Present Illness * Jaiden Cummins, - 06/15/2018 10:00 AM EDT Chief Complaint Patient presents with Left Shoulder - Pain HPI Pain Radiation To: back (06/15/18 1004) Pain Duration: 7 mo. (06/15/18 1004) Pain Frequency: constant (06/15/18 1004) Pain Quality: burning;sharp (06/15/18 1004) Factors That Aggravate Pain: activity (06/15/18 1004) Factors That Relieve Pain: rest;medications, over the counter (OTC) (06/15/18 1004) Dictation on: 06/15/2018 10:32 AM by: JAIDEN CUMMINS [[id number]] EXAM SHOULDER EXAM RIGHT LEFT Inspection No swelling. No atrophy. Clavical deformity. No swelling. No atrophy. No deformity. Palpation No tenderness to palpation. No tenderness to palpation. ROM FF: 180 Abd: 180 IR: 80 ER: 80 FF: 180 Abd: 180 IR: 80 ER: 80 Strength Supraspinatus: 5/5 ER: 5/5 Lift off/belly press: 5/5 Supraspinatus: 5/5 ER: 5/5 Lift off/belly press: 5/5 Neers: NEG Moses: Pos-L Apprehension: NEG Olustee's: NEG Speed's: NEG Yergason's: NEG Crossover: NEG Physical exam performed by Dr. Cummins with documentation completed by Bryon Gates ATC General medical exam: Constitutional: A&O x 3. No acute distress HEENT: EMOI. Conjunctiva normal. Trachea midline. Head: AT , NC Neck: Supple CV : Normal rate Pulm: No audible wheezing. No respiratory distress Neuro: No acute focal neurological deficits. Skin: Warm. Dry. No diaphoresis. Psych: Normal mood and affect. Judgement normal. Nursing notes and vitals reviewed. Visit Vitals Temp 97.8 F (36.6 C) (Temporal) Ht 1.626 m (5' 4 ) Wt 61.9 kg (136 lb 6.4 oz) BMI 23.41 kg/m ROS Gen: No recent fevers Skin: No new rash Eyes: No blurred vision Resp: No recent wheezing GI : No acute loss of bowel : No acute incontinence Heme: No easy bleeding or bruising MSK : Negative except per HPI Neuro: Negative except per HPI PMH, PSH, FMH, social, meds and allergies reviewed and updated in chart. *Portions of this note may have been created with [employer] or other software which leads to grammatical and typographical errors which are not electronics parts sales representative of the intent with my spoken words. Clinical assistant clinical director/AT/MA was acting as a scribe today for this note. I have performed all essentialcomponents of the history, and physical exam. I have confirmed the diagnosis and developed a plan of care at this visit. I have reviewed the note following the visit and have add edits as appropriateto my evaluation and plan of care. Jaiden Cummins DO * Bryon Gates ATC - 06/15/2018 10:00 AM EDT Chief Complaint Patient presents with Left Shoulder - Pain HPI Pain Radiation To: back (06/15/18 100) Pain Duration: 7 mo. (06/15/18 1004) Pain Frequency: constant (06/15/18 100) Pain Quality: burning;sharp (06/15/18 100) Factors That Aggravate Pain: activity (06/15/18 1004) Factors That Relieve Pain: rest;medications, over the counter (OTC) (06/15/18 1004) EXAM SHOULDER EXAM RIGHT LEFT Inspection No swelling. No atrophy. Clavical deformity. No swelling. No atrophy. No deformity. Palpation No tenderness to palpation. No tenderness to palpation. ROM FF: 180 Abd: 180 IR: 80 ER: 80 FF: 180 Abd: 180 IR: 80 ER: 80 Strength Supraspinatus: 5/5 ER: 5/5 Lift off/belly press: 5/5 Supraspinatus: 5/5 ER: 5/5 Lift off/belly press: 5/5 Neers: NEG Moses: Pos-L Apprehension: NEG Olustee's: NEG Speed's: NEG Yergason's: NEG Crossover: NEG Physical exam performed by Dr. Cummins with documentation completed by Bryon Gates ATC General medical exam: Constitutional: A&O x 3. No acute distress HEENT: EMOI. Conjunctiva normal. Trachea midline. Head: AT , NC Neck: Supple CV : Normal rate Pulm: No audible wheezing. No respiratory distress Neuro: No acute focal neurological deficits. Skin: Warm. Dry. No diaphoresis. Psych: Normal mood and affect. Judgement normal. Nursing notes and vitals reviewed. Visit Vitals Temp 97.8 F (36.6 C) (Temporal) Ht 1.626 m (5' 4 ) Wt 61.9 kg (136 lb 6.4 oz) BMI 23.41 kg/m ROS Gen: No recent fevers Skin: No new rash Eyes: No blurred vision Resp: No recent wheezing GI : No acute loss of bowel : No acute incontinence Heme: No easy bleeding or bruising MSK : Negative except per HPI Neuro: Negative except per HPI PMH, PSH, FMH, social, meds and allergies reviewed and updated in chart. *Portions of this note may have been created with [employer] or other software which leads to grammatical and typographical errors which are not electronics parts sales representative of the intent with my spoken words. documented in this encounter Reason for Referral Status Reason Specialty Diagnoses / Procedures Referred By Contact Referred To Contact Pending Review Radiology Procedures US Abdomen Limited Study Marker, India Jones, DO [address] [place] [id number] Status Reason Specialty Diagnoses / Procedures Referred By Contact Referred To Contact New Request Orthopaedics Diagnoses Strain of left shoulder, initial encounter Alex Odom PA-C [address] [place] [phone] Deven Bush MD [address] [place], [place] [id number] Additional Source Comments (unrecognized sect ion and content) No Status Records FoundNo Status Records FoundNo Status Records FoundNo Status Records FoundNo Status Records FoundNo Status Records FoundNo Status Records Found INFORMATION SOURCE (unrecogn ized section and content) DATE CREATED AUTHOR AUTHOR'S ORGANIZ ATION 03/08/2018 [facility] DATE CREATED AUTHOR AUTHOR'S ORGANIZ ATION 12/31/2020 [facility] DATE CREATED AUTHOR AUTHOR'S ORGANIZ ATION 05/17/2021 [facility] DATE CREATED AUTHOR AUTHOR'S ORGANIZ ATION 09/01/2021 [facility] DATE CREATED AUTHOR AUTHOR'S ORGANIZ ATION 11/17/2022 [facility] DATE CREATED AUTHOR AUTHOR'S ORGANIZ ATION 01/23/2023 [facility] Reason for Visit (unrecogniz ed section and content) Reason Comments Pain Status Reason Specialty Diagnoses / Procedures Referred By Contact Referred To Contact Pending Review Orthopaedic Surg jannie & Sports Medicine / Orthopaedics Diagnoses Strain of left shoulder, initial encounter Alex Odom PA-C [address] [place] [phone] Jaiden Cummins DO [address] [place] [phone] Reason Comments Abdominal Pain PT C/O ABDOMINAL CASSIDY N FOR THE PAST FEW WEEKS INTERMITTENTLY Reason Comments Dental Pain Reason Comments Foot Pain back of heel up into back of leg woke up with pain No injury Hurts worse with bending Reason Comments Weakness Numbness Reason Comments Shoulder Pain slepp on it wrong le ft shoulder pain Reason Comments Hand Pain Reason Comments Hand Pain Left. For a long ti me . Was seen at [facility] for the same. Had a normal X-ray. Has been taking ibuprofen. Has a follow up appointment with [facility] tomorrow. Reason Comments Hip Pain right hip pain after picking up a turkey Reason Comments Flank Pain Pt c/o right flank p ain for a long time . Pt reports history of multiple kidney stones. Reports he did have burning with urination, but has been drinking a lot of cranberry juice and Gatorade and that improved his urinary symptoms. Reason Comments Laceration To ed with c/o head laceration noted to forehead. Pt was carrying a tree stand when he tripped and ran into the stand. Pt A+O x 4 Thao Bradley RN - 07/25/2018 12:32 AM Thao Duran RN - 07/24/2018 11:37 PM Thao Duran RN - 07/24/2018 11:32 PM Thao Duran RN - 07/24/2018 11:32 PM EDT ED Notes (unrecognized secti on and content) DR LINUS BOLANOS Back from CT Report received from ADELINA Wharton Pt to ct ED PROVIDER NOTE [facility] EMERGENCY [facility] NAME: Constantino Pineda AGE: 37 y.o. : 1980 VISIT DATE: 07/24/2018 CSN: [id number] PCP: Precious Sy CNP Chief Complaint Patient presents with Abdominal Pain PT C/O ABDOMINAL PAIN FOR THE PAST FEW WEEKS INTERMITTENTLY This 37-year-old male presents for evaluation of right upper quadrant abdominal pain. He states he does not know if he has an ulcer or what but what ever it is he is having pain in the right upper quadrant. The pain is worse when he eats spicy foods. He denies any nausea or vomiting. He is not having the pain currently. He did have an episode of the pain around 7 PM this evening that he states almost dropped him to his knees. He has not had any weight loss. He denies any dark tarry stools. He denies excessive alcohol use. He has not recently had any change in his medications. He denies any chest pain or shortness of breath. He has not had a fever. Past Medical History: Diagnosis Date Anxiety Asthma Bipolar 1 disorder ([facility]) Depression History of left shoulder fracture fell roller blading Rib fractures Seizures ([facility]) History reviewed. No pertinent surgical history. Family History Problem Relation Age of Onset COPD Mother Thyroid disease Mother No Known Problems Father Cancer Maternal Grandfather Heart disease Maternal Grandfather Social History Socioeconomic History Marital status: Legally Spouse name: Not on file Number of children: Not on file Years of education: Not on file Highest education level: Not on file Occupational History Not on file Social Needs Financial resource strain: Not on file Food insecurity: Worry: Not on file Inability: Not on file Transportation needs: Medical: Not on file Non-medical: Not on file Tobacco Use Smoking status: Current Some Day Smoker Packs/day: 0.20 Years: 24.00 Pack years: 4.80 Types: Cigarettes Smokeless tobacco: Former User Quit date: 02/27/2017 Substance and Sexual Activity Alcohol use: Not Currently Comment: rarely Drug use: Yes Types: Marijuana Comment: occasionally. Sexual activity: Not Currently Partners: Female control/protection: Condom Lifestyle Physical activity: Days per week: Not on file Minutes per session: Not on file Stress: Not on file Relationships Social connections: Talks on phone: Not on file Gets together: Not on file Attends congregational service: Not on file Active member of club or organization: Not on file Attends meetings of clubs or organizations: Not on file Relationship status: Not on file Other Topics Concern Not on file Social History Narrative Not on file Previous Medications Medication Sig albuterol 90 mcg/actuation inhaler Inhale 2 (two) puffs every 6 (six) hours as needed for wheezing . busPIRone (BUSPAR) 5 MG tablet Take 1 (one) tablet (5 mg total) by mouth 3 (three) times a day as needed (anxiety) . cloNIDine HCl (CATAPRES) 0.1 MG tablet Take 1 (one) tablet (0.1 mg total) by mouth 2 (two) times a day . QUEtiapine (SEROQUEL) 50 MG tablet Take 1 (one) tablet (50 mg total) by mouth nightly . Allergies Allergen Reactions Aspirin Hives Review of Systems Gastrointestinal: Positive for abdominal pain. All other systems reviewed and are negative. Patient Vitals for the past 24 hrs: BP Temp Temp src Pulse SpO2 Height Weight 07/24/18 2318 115/75 62 97 % 07/24/181 123/74 98.1 F (36.7 C) Oral 85 95 % 07/24/182015 5' 3 72.6 kg (160 lb) Physical Exam Constitutional: He is oriented to person, place, and time. He appears well- developed and well-nourished. Thin adult male, no respiratory distress HENT: Head: Normocephalic and atraumatic. Mouth/Throat: Oropharynx is clear and moist. Eyes: EOM are normal. Pupils are equal, round, and reactive to light. Cardiovascular: Normal rate, regular rhythm, normal heart sounds and intact distal pulses. Pulmonary/Chest: Effort normal and breath sounds normal. Abdominal: Normal appearance and bowel sounds are normal. There is tenderness in the right upper quadrant. There is no CVA tenderness. Abdomen is soft, flat, nondistended, there is mild right upper quadrant tenderness to deep palpation, there is no right lower quadrant tenderness, there are no peritoneal signs, bowel sounds are normal Neurological: He is alert and oriented to person, place, and time. Skin: Skin is warm and dry. Capillary refill takes less than 2 seconds. Psychiatric: He has a normal mood and affect. His behavior is normal. Laboratory & Radiographic Imaging (if done): Results for orders placed or performed during the hospital encounter of 07/24/18 Lavender Top Result Value Ref Range Extra Tube Hold for add-ons. Gold Top Result Value Ref Range Extra Tube Hold for add-ons. Light Blue Top Result Value Ref Range Extra Tube Hold for add-ons. BMP Result Value Ref Range Sodium 143 135 - 145 mmol/L Potassium 4.1 3.5 - 5.1 mmol/L Chloride 109 (H) 98 - 108 mmol/L Bicarbonate 26 21 - 32 mmol/L Anion Gap 12 10 - 20 mmol/L Glucose 105 (H) 65 - 99 mg/dL BUN 16 8 - 25 mg/dL Creatinine 1.11 0.50 - 1.30 mg/dL eGFR 84 >=60 mL/min/1.73 m2 BUN/Creatinine Ratio 14.4 10.0 - 20.0 Calcium 9.1 8.4 - 10.2 mg/dL Hepatic Function Panel (LFT) Result Value Ref Range Total Protein 7.1 6.0 - 8.0 g/dL Albumin 3.8 3.2 - 5.2 g/dL Total Bilirubin 0.4 0.0 - 1.3 mg/dL Bilirubin, Direct 0.2 0.0 - 0.4 mg/dL Alkaline Phosphatase 89 40 - 140 U/L AST 23 0 - 45 U/L ALT 37 14 - 65 U/L Lipase Result Value Ref Range Lipase 277 73 - 393 U/L CBC Auto Differential Result Value Ref Range WBC 7.46 4.50 - 11.00 K/mcL RBC 4.60 4.50 - 5.90 M/mcL Hemoglobin 14.5 13.5 - 17.5 g/dL Hematocrit 41.1 41.0 - 53.0 % MCV 89.3 80.0 - 100.0 fL MCH 31.5 26.0 - 34.0 pg MCHC 35.3 31.0 - 37.0 g/dL Platelets 257 150 - 400 K/mcL RDW - CV 11.8 11.6 - 14.8 % MPV 11.4 9.0 - 15.5 fL Neutrophils 36.8 % Lymphocytes 44.4 % Monocytes 11.0 % Eosinophils 6.7 % Basophils 0.8 % IG Percent 0.30 % Neutrophils Abs 2.75 1.70 - 7.00 K/mcL Lymphocytes Abs 3.31 0.90 - 4.00 K/mcL Monocytes Abs 0.82 0.30 - 0.90 K/mcL Eosinophils Abs 0.50 0.00 - 0.50 K/mcL Basophils Abs 0.06 0.00 - 0.30 K/mcL IG Absolute 0.02 0.00 - 0.30 K/mcL Nucleated RBC 0.0 % Nucleated RBC Abs 0.00 0.00 - 0.00 K/mcL CT Abdomen Pelvis With IV Contrast Only Preliminary Result 1. Normal appendix. 2. Moderate amount of stool throughout the colon. No evidence for bowel obstruction. 3. 5 mm nonobstructive right lower pole intrarenal calculus. No ureteral or bladder stone. [facility] Workstation ID: [id number] US Abdomen Limited Study (Results Pending) Procedures MDM ED Course as of Jul 26 39MonJuly 25, 2018 0034 Pt is feeling better, requests to drink. Results of CT scan and labs discussed with patient and his girlfriend. He agrees to follow up for an outpatient ultrasound of his gallbladder [MM] ED Course User Index [MM] India Murphy DO The patient has been informed that they may have pre-hypertension or hypertension based on a blood pressure reading in the Emergency Department. I recommend that the patient call the primary care provider listed on their discharge instructions or a physician of their choice as soon as possible to arrange follow-up in the next 4 weeks for further evaluation of possible pre-hypertension or hypertension. . Clinical Impression: SNOMED CT(R) 1. Abdominal pain in male ABDOMINAL PAIN 2. Biliary colic [facility] Disposition ED Disposition Condition Comment Discharge Stable Constantino Pineda discharged to home/self care in stable condition. Follow-up Information 1. Precious Sy CNP. Specialties: Family Medicine, Nurse Practitioner [address] [facility] [address] 2. Giorgi Gibbs MD. Specialties: General Surgery, Trauma Why: Call for appointment after your ultrasound [address] [address] Contact information for after-discharge care Follow-up information has not been specified. New Prescriptions famotidine (PEPCID) 20 MG tablet Take 1 (one) tablet (20 mg total) by mouth 2 (two) times a day . India Murphy DO 07/25/18 0041 Physician at bedside. PT STATES R SIDED ABDOMINAL PAIN. documented in this encounter Discharge instructions given and voiced understanding by patient and family member. Denies any needs or concerns. [facility] ED BETINA Note: NAME: Constantino Pineda 38 y.o. CSN: [id number] PCP: Precious Sy CNP History: Chief Complaint: Dental Pain HPI: The history was obtained from the patient. Constantino is a 38 y.o. male who presents with a chief complaint of Dental Pain. Patient arrives to the emergency department via squad for right lower jaw dental pain on and off for the past year. Started hurting last night. Feels that his gums are inflamed and it is making him sick to his stomach. He has had a couple episodes of vomiting that he attributes to his tooth hurting. He has not been able to make it into a dentist. Denies any trauma. No fever, chills, chest pain, shortness breath, abdominal pain, diarrhea, urinary symptoms. No recent antibiotics. PMHx: Past Medical History: Diagnosis Date Anxiety Asthma Bipolar 1 disorder (HCC) Depression History of left shoulder fracture fell roller blading Rib fractures Seizures (HCC) PMSx: History reviewed. No pertinent surgical history. FAM. Hx: Family History Problem Relation Age of Onset COPD Mother Thyroid disease Mother No Known Problems Father Cancer Maternal Grandfather Heart disease Maternal Grandfather SOC. Hx: Social History Socioeconomic History Marital status: Legally Spouse name: Not on file Number of children: Not on file Years of education: Not on file Highest education level: Not on file Occupational History Not on file Social Needs Financial resource strain: Not on file Food insecurity Worry: Not on file Inability: Not on file Transportation needs Medical: Not on file Non-medical: Not on file Tobacco Use Smoking status: Current Some Day Smoker Packs/day: 0.20 Years: 24.00 Pack years: 4.80 Types: Cigarettes Smokeless tobacco: Former User Quit date: 02/27/2017 Substance and Sexual Activity Alcohol use: Not Currently Comment: rarely Drug use: Yes Types: Marijuana Comment: occasionally. Sexual activity: Not Currently Partners: Female control/protection: Condom Lifestyle Physical activity Days per week: Not on file Minutes per session: Not on file Stress: Not on file Relationships Social connections Talks on phone: Not on file Gets together: Not on file Attends congregational service: Not on file Active member of club or organization: Not on file Attends meetings of clubs or organizations: Not on file Relationship status: Not on file Other Topics Concern Not on file Social History Narrative Not on file MEDs: Previous Medications Medication Sig albuterol 90 mcg/actuation inhaler Inhale 2 (two) puffs every 6 (six) hours as needed for wheezing . busPIRone (BUSPAR) 5 MG tablet Take 1 (one) tablet (5 mg total) by mouth 3 (three) times a day as needed (anxiety) . cloNIDine HCl (CATAPRES) 0.1 MG tablet Take 1 (one) tablet (0.1 mg total) by mouth 2 (two) times a day . famotidine (PEPCID) 20 MG tablet Take 1 (one) tablet (20 mg total) by mouth 2 (two) times a day . QUEtiapine (SEROQUEL) 50 MG tablet Take 1 (one) tablet (50 mg total) by mouth nightly . ALL: Allergies Allergen Reactions Aspirin Hives ROS: Positives and pertinent negatives as per HPI. All other systems were reviewed and are negative. Physical Exam: Patient Vitals for the past 24 hrs: BP Temp Temp src Pulse Resp SpO2 Height Weight 06/07/19 1308 5' 5 68 kg (150 lb) 06/07/19 1306 136/86 99 F (37.2 C) Oral 99 (!) 20 97 % Physical Exam Vitals signs and nursing note reviewed. Constitutional: General: He is not in acute distress. Appearance: Normal appearance. He is well-developed. He is not ill-appearing, toxic-appearing or diaphoretic. HENT: Head: Normocephalic and atraumatic. Comments: No facial swelling or cellulitis Nose: Nose normal. Mouth/Throat: Lips: [place]. Mouth: Mucous membranes are moist. Dentition: Dental caries (Severe, throughout mouth) present. No dental abscesses. Pharynx: Oropharynx is clear. Uvula midline. Eyes: General: No scleral icterus. Conjunctiva/sclera: Conjunctivae normal. Neck: Musculoskeletal: Full passive range of motion without pain and neck supple. Cardiovascular: Rate and Rhythm: Normal rate and regular rhythm. Heart sounds: Normal heart sounds. No murmur. Pulmonary: Effort: Pulmonary effort is normal. No respiratory distress. Breath sounds: Normal breath sounds and air entry. Musculoskeletal: Right lower leg: He exhibits no swelling. No edema. Left lower leg: He exhibits no swelling. No edema. Lymphadenopathy: Cervical: No cervical adenopathy. Skin: General: Skin is warm and dry. Capillary Refill: Capillary refill takes less than 2 seconds. Findings: No rash. Neurological: General: No focal deficit present. Mental Status: He is alert and oriented to person, place, and time. GCS: GCS eye subscore is 4. GCS verbal subscore is 5. GCS motor subscore is 6. Cranial Nerves: Cranial nerves are intact. Sensory: Sensation is intact. Gait: Gait is intact. Psychiatric: Behavior: Behavior normal. Behavior is cooperative. Laboratory & Radiological Imaging (if done): Labs Reviewed - No data to display No orders to display MDM: No abscess, facial swelling or cellulitis noted. Erythema and tenderness to the gums to the right lower jaw. Reports nausea associated with gum pain. Given Zofran. Treated with Pen-Vee K with instructions to use ibuprofen and Tylenol as needed for pain. We also discussed need to follow-up with dentist in the next 1 to 2 weeks. We discussed signs and symptoms of worsening condition when to return to the ER. Verbalized understanding. Discharged in stable condition. Clinical Impression: 1. Pain, dental Disposition: Patient is being discharge home. New Prescriptions penicillin v potassium (VEETID) 500 MG tablet Take 1 (one) tablet (500 mg total) by mouth 4 (four) times a day . Dunia Jean CNP ED Advanced Practice Provider [facility] Emergency Department (Please note that portions of this note have been completed with a voice recognition software. Efforts were made to correct any errors, but occasionally words are mis-transcribed.) Dunia Jean CNP 06/07/19 1325 Pt arrived via onarga with c/o chronic dental pain. States that r lower tooth abscess for the past year. Denies fever. Unable to see dentist due to insurance. No obvious facial swelling Bed: 15 Expected date: Expected time: Means of arrival: Comments: mfd r1 documented in this encounter ED PROVIDER NOTE [facility] EMERGENCY DEPARTMENT NAME: Constantino Pineda AGE: 38 y.o. : 1980 VISIT DATE: 08/28/2019 CSN: [id number] PCP: Precious Sy CNP Chief Complaint Patient presents with Foot Pain back of heel up into back of leg woke up with pain No injury Hurts worse with bending CC: Right foot big toe pain x1 day HPI: this is 38 years old male; presented to the ER with the above complaint; this morning when he woke up and started walking felt mod sharp pain to the right big toe dorsum at the base ; that gets worse at range of motion and ambulation; no swelling or redness or warmth ; walks w a light limp. no history of an injury to right foot. No other joint pain ;no recent URI or GI infections; no history of gout; patient drinks casually and last drink was 2 weeks ago; Past Medical History: Diagnosis Date Anxiety Asthma Bipolar 1 disorder (HCC) Depression History of left shoulder fracture fell roller blading Rib fractures Seizures (HCC) History reviewed. No pertinent surgical history. Family History Problem Relation Age of Onset COPD Mother Thyroid disease Mother No Known Problems Father Cancer Maternal Grandfather Heart disease Maternal Grandfather Social History Socioeconomic History Marital status: Spouse name: Not on file Number of children: Not on file Years of education: Not on file Highest education level: Not on file Occupational History Not on file Social Needs Financial resource strain: Not on file Food insecurity Worry: Not on file Inability: Not on file Transportation needs Medical: Not on file Non-medical: Not on file Tobacco Use Smoking status: Current Some Day Smoker Packs/day: 0.20 Years: 24.00 Pack years: 4.80 Types: Cigarettes Smokeless tobacco: Former User Quit date: 02/27/2017 Substance and Sexual Activity Alcohol use: Not Currently Comment: rarely Drug use: Yes Types: Marijuana Comment: occasionally. Sexual activity: Not Currently Partners: Female control/protection: Condom Lifestyle Physical activity Days per week: Not on file Minutes per session: Not on file Stress: Not on file Relationships Social connections Talks on phone: Not on file Gets together: Not on file Attends congregational service: Not on file Active member of club or organization: Not on file Attends meetings of clubs or organizations: Not on file Relationship status: Not on file Other Topics Concern Not on file Social History Narrative Not on file Previous Medications Medication Sig albuterol 90 mcg/actuation inhaler Inhale 2 (two) puffs every 6 (six) hours as needed for wheezing . busPIRone (BUSPAR) 5 MG tablet Take 1 (one) tablet (5 mg total) by mouth 3 (three) times a day as needed (anxiety) . cloNIDine HCl (CATAPRES) 0.1 MG tablet Take 1 (one) tablet (0.1 mg total) by mouth 2 (two) times a day . famotidine (PEPCID) 20 MG tablet Take 1 (one) tablet (20 mg total) by mouth 2 (two) times a day . ondansetron (Zofran ODT) 4 MG disintegrating tablet Dissolve 1 (one) tablet (4 mg total) on top of tongue every 8 (eight) hours as needed for nausea . penicillin v potassium (VEETID) 500 MG tablet Take 1 (one) tablet (500 mg total) by mouth 4 (four) times a day . QUEtiapine (SEROQUEL) 50 MG tablet Take 1 (one) tablet (50 mg total) by mouth nightly . Allergies Allergen Reactions Aspirin Hives Review of Systems Constitutional: Positive for activity change. HENT: Negative. Eyes: Negative. Respiratory: Negative. Cardiovascular: Negative. Gastrointestinal: Negative. Endocrine: Negative. Genitourinary: Negative. Musculoskeletal: Positive for arthralgias and gait problem. Skin: Negative. Allergic/Immunologic: Negative. Hematological: Negative. Psychiatric/Behavioral: Negative. Patient Vitals for the past 24 hrs: BP Temp Temp src Pulse Resp Height Weight 08/28/19 0825 114/84 76 18 5' 3 72.6 kg (160 lb) 08/28/19 0824 98.1 F (36.7 C) Infrared Physical Exam Vitals signs and nursing note reviewed. Constitutional: General: He is not in acute distress. Appearance: Normal appearance. HENT: Head: Normocephalic and atraumatic. Nose: Nose normal. Eyes: Extraocular Movements: Extraocular movements intact. Pupils: Pupils are equal, round, and reactive to light. Neck: Musculoskeletal: Normal range of motion and neck supple. Cardiovascular: Rate and Rhythm: Normal rate and regular rhythm. Pulmonary: Effort: Pulmonary effort is normal. Breath sounds: Normal breath sounds. Abdominal: Tenderness: There is no abdominal tenderness. There is no right CVA tenderness or left CVA tenderness. Musculoskeletal: General: Tenderness present. No swelling. Comments: Right big toe is tender over the dorsum at MTP joint; no redness warmth or swelling; range of motion are painless at other joints the foot; Skin: General: Skin is warm. Capillary Refill: Capillary refill takes less than 2 seconds. Neurological: General: No focal deficit present. Mental Status: He is alert and oriented to person, place, and time. Psychiatric: Mood and Affect: Mood normal. Behavior: Behavior normal. Laboratory & Radiographic Imaging (if done): No results found for this visit on 08/28/19. No orders to display Procedures MDM Number of Diagnoses or Management Options Diagnosis management comments: History and physical examination history of of tendinitis of the right big toe dorsum; no need for any x-ray at this time; and patient agreed with that; advised ibuprofen 600 mg 3 times a day after food; use Ky wrap during the day time; continue using wide box shoes; follow-up with the PCP PRN; return to ER if gets worse like redness or fever; Amount and/or Complexity of Data Reviewed Discussion of test results with the performing providers: no Decide to obtain previous medical records or to obtain history from someone other than the patient: no Obtain history from someone other than the patient: no Review and summarize past medical records: no Discuss the patient with other providers: no Independent visualization of images, tracings, or specimens: no Risk of Complications, Morbidity, and/or Mortality Presenting problems: low Management options: low Patient Progress Patient progress: stable The patient has been informed that they may have pre-hypertension or hypertension based on a blood pressure reading in the Emergency Department. I recommend that the patient call the primary care provider listed on their discharge instructions or a physician of their choice as soon as possible to arrange follow-up in the next 4 weeks for further evaluation of possible pre-hypertension or hypertension. . Clinical Impression: 1. Tendinitis of toe ED Disposition ED Disposition Condition Comment Discharge Stable Constantino Pineda discharged to home/self care in stable condition. Follow-up Information Follow-up information has not been specified. Contact information for after-discharge care Follow-up information has not been specified. DX; tendinitis of right big toe dorsum advised ibuprofen 600 mg 3 times a day after food; use Ky wrap during the day time; continue using wide box shoes; follow-up with the PCP PRN; return to ER if gets worse like redness or fever; Navneet Sofia MD 08/28/19 0857 Arrived with right heel pain, States woke up with it and denies any injury. documented in this encounter ED PROVIDER NOTE [facility] EMERGENCY DEPARTMENT NAME: Constantino Pineda AGE: 39 y.o. : 1980 VISIT DATE: 12/03/2019 CSN: [id number] PCP: Precious Sy CNP Chief Complaint Patient presents with Weakness Numbness Patient presents for evaluation States he has had a potpourri of symptoms for years Nothing today that is concerning him Patient denies feeling of medical emergency or urgency No CP or SOB No fever/chills No syncope or near syncope No urinary s/sx No NVDC No balance disturbance or weakness No pain History provided by: Patient Past Medical History: Diagnosis Date Anxiety Asthma Bipolar 1 disorder (HCC) Depression History of left shoulder fracture fell roller blading Rib fractures Seizures (HCC) History reviewed. No pertinent surgical history. Family History Problem Relation Age of Onset COPD Mother Thyroid disease Mother No Known Problems Father Cancer Maternal Grandfather Heart disease Maternal Grandfather Social History Socioeconomic History Marital status: Spouse name: Not on file Number of children: Not on file Years of education: Not on file Highest education level: Not on file Occupational History Not on file Social Needs Financial resource strain: Not on file Food insecurity Worry: Not on file Inability: Not on file Transportation needs Medical: Not on file Non-medical: Not on file Tobacco Use Smoking status: Current Some Day Smoker Packs/day: 0.20 Years: 24.00 Pack years: 4.80 Types: Cigarettes Smokeless tobacco: Former User Quit date: 02/27/2017 Substance and Sexual Activity Alcohol use: Not Currently Comment: rarely Drug use: Yes Types: Marijuana Comment: occasionally. Sexual activity: Not Currently Partners: Female control/protection: Condom Lifestyle Physical activity Days per week: Not on file Minutes per session: Not on file Stress: Not on file Relationships Social connections Talks on phone: Not on file Gets together: Not on file Attends congregational service: Not on file Active member of club or organization: Not on file Attends meetings of clubs or organizations: Not on file Relationship status: Not on file Other Topics Concern Not on file Social History Narrative Not on file Previous Medications Medication Sig albuterol 90 mcg/actuation inhaler Inhale 2 (two) puffs every 6 (six) hours as needed for wheezing . busPIRone (BUSPAR) 5 MG tablet Take 1 (one) tablet (5 mg total) by mouth 3 (three) times a day as needed (anxiety) . cloNIDine HCl (CATAPRES) 0.1 MG tablet Take 1 (one) tablet (0.1 mg total) by mouth 2 (two) times a day . famotidine (PEPCID) 20 MG tablet Take 1 (one) tablet (20 mg total) by mouth 2 (two) times a day . ondansetron (Zofran ODT) 4 MG disintegrating tablet Dissolve 1 (one) tablet (4 mg total) on top of tongue every 8 (eight) hours as needed for nausea . penicillin v potassium (VEETID) 500 MG tablet Take 1 (one) tablet (500 mg total) by mouth 4 (four) times a day . QUEtiapine (SEROQUEL) 50 MG tablet Take 1 (one) tablet (50 mg total) by mouth nightly . Allergies Allergen Reactions Aspirin Hives Review of Systems All other systems reviewed and are negative. Patient Vitals for the past 24 hrs: BP Temp Temp src Pulse Resp SpO2 Height Weight 12/03/19 0912 127/76 97.8 F (36.6 C) Oral 64 18 98 % 5' 4 54.4 kg (120 lb) Physical Exam Vitals signs and nursing note reviewed. Constitutional: Appearance: He is normal weight. HENT: Head: Normocephalic. Right Ear: External ear normal. Left Ear: External ear normal. Nose: Nose normal. Mouth/Throat: Mouth: Mucous membranes are moist. Pharynx: Oropharynx is clear. No oropharyngeal exudate. Eyes: General: No scleral icterus. Conjunctiva/sclera: Conjunctivae normal. Neck: Musculoskeletal: No muscular tenderness. Cardiovascular: Rate and Rhythm: Normal rate and regular rhythm. Pulses: Normal pulses. Heart sounds: Normal heart sounds. Pulmonary: Effort: Pulmonary effort is normal. No respiratory distress. Breath sounds: Normal breath sounds. Chest: Chest wall: No tenderness. Abdominal: General: There is no distension. Palpations: Abdomen is soft. Tenderness: There is no abdominal tenderness. There is no right CVA tenderness, left CVA tenderness or guarding. Musculoskeletal: Normal range of motion. Right lower leg: No edema. Left lower leg: No edema. Lymphadenopathy: Cervical: No cervical adenopathy. Skin: General: Skin is warm. Capillary Refill: Capillary refill takes less than 2 seconds. Findings: No rash. Neurological: General: No focal deficit present. Mental Status: He is alert and oriented to person, place, and time. Cranial Nerves: No cranial nerve deficit. Sensory: No sensory deficit. Motor: No weakness. Coordination: Coordination normal. Gait: Gait normal. Psychiatric: Mood and Affect: Mood normal. Behavior: Behavior normal. Thought Content: Thought content normal. Judgment: Judgment normal. Laboratory & Radiographic Imaging (if done): No results found for this visit on 12/03/19. No orders to display Procedures MDM Number of Diagnoses or Management Options Encounter for medical screening examination: Diagnosis management comments: Patient admits main concern is need for work note Does not feel we need to do any further testing and admits all complaints are chronic in nature with no new concerns The patient has been informed that they may have pre-hypertension or hypertension based on a blood pressure reading in the Emergency Department. I recommend that the patient call the primary care provider listed on their discharge instructions or a physician of their choice as soon as possible to arrange follow-up in the next 4 weeks for further evaluation of possible pre-hypertension or hypertension. . Clinical Impression: 1. Encounter for medical screening examination ED Disposition ED Disposition Condition Comment Discharge Stable Constantino Graham Pineda discharged to home/self care in stable condition. Follow-up Information 1. Precious Sy CNP. Specialties: Family Medicine, Nurse Practitioner [address] [place] [address] Contact information for after-discharge care Follow-up information has not been specified. Vashti Gallegos PA-C 12/03/19 0921 C/O INTERMITTENT WEAKNESS AND NUMBNESS TO LUE THAT RADIATES INTO THE LLE FOR THE LAST COUPLE YEARS. ALSO C/O FEELING CLAMMY . DENIES FEVER. PT STATES HE HAS A FAMILY H/O DM AND HEART DISEASE AND HE IS CONCERNED THAT MIGHT BE AN ISSUE. Bed: 19 Expected date: Expected time: Means of arrival: Comments: 2nd pt documented in this encounter [facility] ED BETINA Note: NAME: Constantino Pineda 39 y.o. CSN: [id number] PCP: Precious Sy CNP History: Chief Complaint: Hand Pain HPI: The history was obtained from the patient. Constantino is a 39 y.o. male who presents with a chief complaint of Hand Pain. States a couple days ago he hit his left palm on a crosswalk button causing pain and swelling to the palm of his left hand. He has been using Tylenol and ibuprofen for the pain. No numbness or tingling. No other injury. PMHx: Past Medical History: Diagnosis Date Anxiety Asthma Bipolar 1 disorder (HCC) Depression History of left shoulder fracture fell roller blading Rib fractures Seizures (HCC) PMSx: History reviewed. No pertinent surgical history. FAM. Hx: Family History Problem Relation Age of Onset COPD Mother Thyroid disease Mother No Known Problems Father Cancer Maternal Grandfather Heart disease Maternal Grandfather SOC. Hx: Social History Socioeconomic History Marital status: Spouse name: Not on file Number of children: Not on file Years of education: Not on file Highest education level: Not on file Occupational History Not on file Social Needs Financial resource strain: Not on file Food insecurity Worry: Not on file Inability: Not on file Transportation needs Medical: Not on file Non-medical: Not on file Tobacco Use Smoking status: Current Some Day Smoker Packs/day: 0.20 Years: 24.00 Pack years: 4.80 Types: Cigarettes Smokeless tobacco: Former User Quit date: 02/27/2017 Substance and Sexual Activity Alcohol use: Not Currently Comment: rarely Drug use: Yes Types: Marijuana Comment: occasionally. Sexual activity: Not Currently Partners: Female control/protection: Condom Lifestyle Physical activity Days per week: Not on file Minutes per session: Not on file Stress: Not on file Relationships Social connections Talks on phone: Not on file Gets together: Not on file Attends congregational service: Not on file Active member of club or organization: Not on file Attends meetings of clubs or organizations: Not on file Relationship status: Not on file Other Topics Concern Not on file Social History Narrative Not on file MEDs: Previous Medications Medication Sig albuterol 90 mcg/actuation inhaler Inhale 2 (two) puffs every 6 (six) hours as needed for wheezing . busPIRone (BUSPAR) 5 MG tablet Take 1 (one) tablet (5 mg total) by mouth 3 (three) times a day as needed (anxiety) . cloNIDine HCl (CATAPRES) 0.1 MG tablet Take 1 (one) tablet (0.1 mg total) by mouth 2 (two) times a day . famotidine (PEPCID) 20 MG tablet Take 1 (one) tablet (20 mg total) by mouth 2 (two) times a day . ondansetron (Zofran ODT) 4 MG disintegrating tablet Dissolve 1 (one) tablet (4 mg total) on top of tongue every 8 (eight) hours as needed for nausea . penicillin v potassium (VEETID) 500 MG tablet Take 1 (one) tablet (500 mg total) by mouth 4 (four) times a day . QUEtiapine (SEROQUEL) 50 MG tablet Take 1 (one) tablet (50 mg total) by mouth nightly . ALL: Allergies Allergen Reactions Aspirin Hives ROS: Positives and pertinent negatives as per HPI. All other systems were reviewed and are negative. Physical Exam: Patient Vitals for the past 24 hrs: BP Temp Temp src Pulse Resp SpO2 Height Weight 06/11/20 1241 135/66 06/11/20 1240 97.8 F (36.6 C) Oral 83 18 98 % 5' 3 54.4 kg (120 lb) Physical Exam Vitals signs and nursing note reviewed. Constitutional: General: He is not in acute distress. Appearance: Normal appearance. He is well-developed. He is not ill-appearing or toxic-appearing. HENT: Head: Normocephalic and atraumatic. Nose: Nose normal. Eyes: General: No scleral icterus. Conjunctiva/sclera: Conjunctivae normal. Neck: Musculoskeletal: Neck supple. Cardiovascular: Rate and Rhythm: Normal rate and regular rhythm. Pulses: Radial pulses are 2+ on the right side and 2+ on the left side. Pulmonary: Effort: Pulmonary effort is normal. No respiratory distress. Musculoskeletal: Left hand: He exhibits tenderness and swelling. He exhibits normal range of motion and normal capillary refill. Normal sensation noted. Normal strength noted. Hands: Right lower leg: He exhibits no swelling. Left lower leg: He exhibits no swelling. Comments: Pain and swelling to the palm of the left hand. No obvious bruising or open wounds. Able to flex and extend all digits without difficulty. Skin: General: Skin is warm and dry. Capillary Refill: Capillary refill takes less than 2 seconds. Findings: No rash. Neurological: Mental Status: He is alert and oriented to person, place, and time. Sensory: Sensation is intact. Motor: Motor function is intact. Psychiatric: Behavior: Behavior normal. Behavior is cooperative. Laboratory & Radiological Imaging (if done): Labs Reviewed - No data to display XR Hand Left 3+ Views (Standard) Final Result 1. No acute osseous abnormality of the left hand. 2. New erosion/deformity of the middle finger distal phalanx tuft this may be related to previous remote trauma; alternatively, a soft tissue lesion such as a glomus tumor with adjacent erosion could be considered. Correlate for history of trauma. MRI could be performed for further evaluation. Workstation ID: [id number] MDM: ED Course as of Jun 11 1412 Judy Jun 11, 2020 1403 IMPRESSION: 1. No acute osseous abnormality of the left hand. 2. New erosion/deformity of the middle finger distal phalanx tuft this may be related to previous remote trauma; alternatively, a soft tissue lesion such as a glomus tumor with adjacent erosion could be considered. Correlate for history of trauma. MRI could be performed for further evaluation. XR Hand Left 3+ Views (Standard) [RH] 1412 Per the radiologist, no acute osseous abnormality of the left hand. There is a deformity to the left middle finger of the distal phalanx. Patient does note he has had a prior trauma to the left middle finger. States his finger got caught in a lawnmower blade, taking the tip of the finger off. This happened several years ago. Suspect this may be the cause of deformity noted on imaging. Instructed patient to follow-up with his primary care provider. Given Ky wrap for comfort. Instructed to use ibuprofen and Tylenol as needed for pain. Discharged in stable condition. [RH] ED Course User Index [RH] Dunia Jean CNP Clinical Impression: 1. Pain of left hand Disposition: Patient is being discharge home. Dunia Jean CNP ED Advanced Practice Provider [facility] Emergency Department (Please note that portions of this note have been completed with a voice recognition software. Efforts were made to correct any errors, but occasionally words are mis-transcribed.) Dunia Jean CNP 06/11/20 1414 Pt reporting left hand ain x2 days. Unsure if there was an injury Bed: 02 Expected date: Expected time: Means of arrival: Comments: RUNNER NEEDED documented in this encounter ED Attestation Note - Lenka Mcmahon MD - 06/07/2019 1:36 PM EDTED Attestation Note - Annie Acosta MD - 12/03/2019 9:11 AM EDT Miscellaneous Notes (unrecog nized section and content) ED Attestation: I did not see this patient. However, I was physically present in the department and available for consult in the ED for this patient, if the Advanced Practice Provider (BETINA) needed any assistance. The BETINA evaluated the patient independently for a complaint of Dental Pain, and completed their own examination, documentation, and discharge. documented in this encounter ED Attestation: I was personally available for consult in the emergency department. I have reviewed the chart and agree with the documentation as recorded by the BETINA (Advanced Practice Provider), including the assessment, treatment plan, and disposition documented in this encounter Scheduled Active and Recently Administ ered Medications (unrecognized section and content) Scheduled Medication Order 05/11/2022 05/12/2022 05/13/2022 acetaminophen (TYLENOL) tablet 1,000 mg (COMPLETED) 1,000 mg, Oral, ONCE, 1 dose, On Mon05/13/22 at 0900 0908 (Given - Provid er: Jennifer Lees RN) Ondansetron (ZOFRAN) tablet 4 mg (COMPLETED) 4 mg, Oral, ONCE, 1 dose, On Mon05/13/22 at 0930 0908 (Given - Provid er: Jennifer Lees RN) Care Teams (unrecognized sec tion and content) Supervisor Tan Room Relationship Specialty [place] [address] PCP - General Family Medicine 06/05/18 <item><item> Privacy Markings (unrecogniz ed section and content) Section Author: Nu Acosta PROHIBITION ON REDISCLOSURE OF CONFIDENTIAL INFORMATION This notice accompanies a disclosure of information concerning a client made to you with the consent of such client. Section Author: Nu Acosta PROHIBITION ON REDISCLOSURE OF CONFIDENTIAL INFORMATION This notice accompanies a disclosure of information concerning a client made to you with the consent of such client. FOR RECORDS PERTAINING TO PATIENTS WHO ARE OR HAVE BEEN ENROLLED IN A CHEMICAL DEPENDENCY/SUBSTANCEABUSE PROGRAM, SOME INFORMATION MAY BE OMITTED. This clinical summary was aggregated from multiple sources. Caution should be exercised in using it in the provision of clinical care. This summary normalizes information from multiple sources, and as a consequence, information in this document may materially change the coding, format and clinical context of patient data. In addition, data may be omitted in some cases. CLINICAL DECISIONS SHOULD BE BASED ON THE PRIMARY CLINICAL RECORDS. [facility] [employer] provides no warranty or guarantee of the accuracy or completeness of information in this document.
[2023-04-14 22:43] LABS: Anion Gap 7 (5-15); BUN 14 mg/dL (7-18); BUN/Creat Ratio 8.8 RATIO (10-20); Calcium,Total 9.9 mg/dL (8.5-10.1); Chloride 109 mmol/L (98-107); EST Glomerular Filtration Rate 51 mL/min (>60); Est Glom Filt Rate - Afr Amer 61 mL/min (>60); Estimated Creatinine Clearance 52.32 ml/min; Glucose 109 mg/dL (74-106); Potassium 3.4 mmol/L (3.5-5.1); Sodium Level 141 mmol/L (136-145)
[2023-04-14] MEDS: Dextrose 50%-Water 25 GM/50 ML DISP.SYRIN IV (22:55)
[2023-04-14 23:08] LABS: Bedside Glucose 63 mg/dL (74-106)
[2023-04-14 23:46] LABS: Bedside Glucose 114 mg/dL (74-106)
[2023-04-15] VITALS: BP 119/83; PULSE 84; RESP 26; O2SAT 96
[2023-04-15 00:10] VITALS: PULSE 91; RESP 22; O2SAT 98
[2023-04-15 00:23] VITALS: BP 117/86; PULSE 93; RESP 23; TEMP 36.3; O2SAT 97
[2023-04-15 00:30] LABS: Bedside Glucose 103 mg/dL (74-106)
== END 2023-04-15 00:24 | disposition home or self-care (01) ==
PROVIDERS: Emergency Provider Emergency Medicine; Visit Provider Emergency Medicine
DX: R56.9 Unspecified convulsions (principal); E16.2 Hypoglycemia, unspecified; F17.210 Nicotine dependence, cigarettes, uncomplicated
CPT/HCPCS: 70450; 80048; 82962; 85025; 93005; 96365; 96375; 99285; J7030; A4216